=== PATIENT | female | born 1935 | race Caucasian/White ===

== ENCOUNTER → 2016-06-14 | Outpatient (CLI) | payer BC ==
[~2016-06-14] MED LIST: ALEN70TA2 PO; ASCO10003 PO; ASPI325T45 PO; CALC200T PO; CHOL20007 PO; LEVO50TA6 PO; MULTCAP33 PO; MULTCHW PO; OMEP20TA14 PO; SIMV20TA5 PO; VITA400C3 PO; [UNRECOGNIZED DRUG - OTHER] PO
[2016-06-14 10:27] LABS: BLOOD UREA NITROGEN 8 mg/dl (7-18); BUN/CREATININE RATIO 11.1 (10-20); CALCIUM 9.3 mg/dl (8.5-10.1); CARBON DIOXIDE 27 mmol/L (21-32); CHLORIDE 109 mmol/L (98-107); CREATININE 0.75 mg/dl (0.60-1.20); GLUCOSE 91 mg/dl (70-99); POTASSIUM 3.8 mmol/L (3.5-5.1); SODIUM 145 mmol/L (136-145)
== END | disposition home or self-care (01) ==
LOC: C.LAB1850 09:12
PROVIDERS: ATTEND Internal Medicine Pulmonary Disease
DX: E03.9 Hypothyroidism, unspecified (principal)

== ENCOUNTER 2019-04-27 17:35 | Inpatient (IN) ==
[2019-04-27] MEDS ORDERED: SODIUM CHLORIDE 0.9% 1000ML 1,000 ML IV ONE ×2 (17:45)
[2019-04-27] MEDS ORDERED: fentaNYL citrate 100 MCG/2 ML VIAL IV STA (18:33)
--- NOTE | 2019-04-27 18:55 | XRay Report ---
XR chest 1V portable HISTORY: 83 years-old Female Sepsis acute sepsis COMPARISON: Chest radiograph 06/06/2018 TECHNIQUE: Portable AP view of the chest FINDINGS: Cardiac silhouette is enlarged, unchanged. Persistent mediastinal widening. Mild right hemidiaphragma tic elevation. Mild chronic interstitial coarsening of the lung bases. No pneumothorax, pleural effus ion or overt pulmonary edema. Minimal pleural parenchymal scarring of the left upper lobe within the area of remote consolidation with 8 mm nodular opacity seen within this area. Degenerative changes of the shoulders and spine. IMPRESSION: 1. Cardiomegaly without overt pulmonary edema. 2. No evidence of pneumonia. 3. Ill-defined opacities of the left upper lobe within the area of previously documented pneumonia correia ggests postinflammatory scarring with ill-defined 8 mm nodular opacity seen within this distribution which may also reflect scar versus pulmonary nodule. ACT 112: Negative or not required by law. The above report was generated using voice recognition software. It may contain grammatical, syntax o r spelling errors. Electronically signed by: Bernardo Nova M.D. 04/27/2019 6:54 PM
[2019-04-27] MEDS ORDERED: DiphenhydrAMINE HCL 50 MG/ML VIAL IV STA (19:30)
[2019-04-27] MEDS ORDERED: LORazepam 2 MG/4 ML VIAL ONE (19:30)
[2019-04-27] MEDS ORDERED: LORazepam 0.5 MG/1 ML VIAL IV STA (19:30)
[2019-04-27 21:31] LABS: Appearance Urine Turbid (Clear); Bacteria Urine Automated 2+ (Negative); Blood Urine 3+ (Negative); Color Urine Orange; Glucose Urine UA Negative (Negative); Ketones Urine Negative (Negative); Leukocyte Esterase Urine 2+ (Negative); Nitrite Urine Positive (Negative); Protein Urine 1+ (Negative); Specific Gravity Urine 1.015 (1.000-1.030); Urobilinogen Urine Negative (Negative); WBC Urine Automated >30 /hpf (0-5)
[2019-04-27 21:48] LABS: Bilirubin Urine Negative (Negative); Ictotest Urine Negative (Negative)
[2019-04-27 21:50] LABS: RBC Urine Automated >30 /hpf (0-4)
[2019-04-27] MEDS ORDERED: cefTRIAXone SODIUM 2,000 MG/70 ML BAG IV STA (21:52)
[2019-04-27 22:06] LABS: Hematocrit (blood only) 39.4 % (37-47); Hemoglobin 13.1 g/dL (12.0-16.0); Mean Corpuscular Hemoglobin 31.1 pg (25-34); Mean Corpuscular Hgb Conc 33.2 g/dL (32-36); Mean Corpuscular Volume 93.6 fL (80-100); Platelet Count 104 K/uL (130-400); RDW Coefficient of Variation 15.2 % (11.5-14.5); RDW Standard Deviation 52.3 fL (36.4-46.3); Red Blood Count 4.21 M/uL (4.2-5.4); White Blood Count 23.38 K/uL (4.8-10.8)
[2019-04-27 22:14] LABS: INR 1.4 (0.9-1.1); Prothrombin Time 14.2 Seconds (9.0-12.0)
[2019-04-27 22:17] LABS: Alanine Aminotransferase 37 U/L (12-78); Albumin Level 2.7 gm/dl (3.4-5.0); Alkaline Phosphatase 105 U/L (45-117); Aspartate Aminotransferase 112 U/L (15-37); BUN Creatinine Ratio 16.7 (10-20); Bilirubin Direct 0.3 mg/dl (0-0.2); Bilirubin,Total 1.2 mg/dl (0.2-1); Blood Urea Nitrogen 37 mg/dl (7-18); Calcium 7.9 mg/dl (8.5-10.1); Carbon Dioxide 23 mmol/L (21-32); Chloride 114 mmol/L (98-107); Est GFR (African American) 23.4; Est GFR (Non-African American) 20.2; Glucose 76 mg/dl (70-99); Lipase 50 U/L (73-393); Magnesium 1.8 mg/dl (1.8-2.4); Sodium 145 mmol/L (136-145); Total Protein 5.6 gm/dl (6.4-8.2); Troponin I 0.117 ng/ml (0-0.045)
[2019-04-27] MEDS ORDERED: VANCOMYCIN CONSULT ACTIVE PRN (22:19)
[2019-04-27] MEDS ORDERED: VANCOMYCIN HCL 1,500 MG in SODIUM CHLORIDE 0.9% 500 ML IV ONE (22:19)
[2019-04-27 22:22] LABS: Potassium 4.5 mmol/L (3.5-5.1)
[2019-04-27 22:28] LABS: Basophils # (auto) 0.04 K/uL (0-0.2); Basophils % (auto) 0.2 %; Echinocytes 1+; Immature Granulocytes # (auto) 2.24 K/uL (0.00-0.02); Immature Granulocytes % (auto) 9.6 %; Lymphocytes # (auto) 0.77 K/uL (1.2-3.4); Lymphocytes % (auto) 3.3 %; Monocytes # (auto) 1.19 K/uL (0.11-0.59); Monocytes % (auto) 5.1 %; Neutrophils # (auto) 19.14 K/uL (1.4-6.5); Neutrophils % (auto) 81.8 %; Ovalocytes 1+
--- NOTE | 2019-04-27 23:14 | History & Physical Report ---
Date of Service April 27, 2019 Assessment & Plan (1) Urinary tract infection: Nelsy is an 83yo F with severe dementia who presents from [facility] for lethargy and who is admitted for urosepsis Urosepsis - Hypotensive, tachycardic on admit. Lactate 3.0. - UA infected appearing - Given empiric rocephin/vanco in ED - Narrow to rocephin 1g daily, d/c vanc for concern of HUNG - UC pending - CBC daily Blood pressure improved following 2 L normal saline bolus Continue NSS 110 cc/h Hypothyroid Continue Synthroid 88 mcg daily Defer TSH in the setting of acute illness Anxiety - Continue sertraline 100mg PO HS - Continue quetiapine 25mg daily History of bullous pemphigoid Continue [employer] prednisone - Continue azathioprine 50mg daily HUNG 2/2 sepsis Creatinine 2.19 from baseline less than 1 IV fluid maintenance as above Avoid nephrotoxins Transaminitis AST and total bilirubin mildly elevated Likely mild shock liver in the setting of sepsis - CMP qAM Troponin elevation Troponin 0.117 Likely demand ischemia in the setting of sepsis Trend troponin x3 - No chest pain at time of visit DVT prophylaxis: Heparin 5000 every 12 CODE STATUS: DNR/DNI. Discussed patient's CODE STATUS with her son Alexis at approximately 2300 hrs. He confirms that she has a living will, and that in the event of cardiac arrest would not want chest compressions. (2) Dementia: (3) Headache: (4) Dyspnea: (5) Dehydration: History of Present Illness Chief Complaint: UTI Primary Care Provider: [facility] Nelsy is an 83-year-old female with a past medical history of dementia, hypothyroid, Bullous pemphigoid,anxiety, and shingles who presents from [facility] after she had been lethargic for 1 day and there were concerns for altered mental status when she pulled out an IV. Per [facility] EMS sign out pt had also had intermittent vomiting x1-2 days. She has severe dementia, and history at the bedside is limited by cognitive status. Briefly discussed her care with her son by phone, reports that she lives at [facility] and they were concerned for lethargy and altered mental status. He confirms that she is DNR/DNI. No other history elicited. By chart review she is also followed by for medicine for bullous pemphigoid and is chronically on low-dose prednisone with intermittent doxycycline. Medical history: Reviewed as above Surgical history, reviewed in EMR, no documented surgical history Family history: Unable to obtain due to mental status Social history: No history of tobacco use, alcohol use, or substance use. Lives at [facility]. Allergies Allergy/AdvReac Type Severity Reaction Status Date / Time adhesive Allergy Unknown . Verified 04/27/19 20:00 Sulfa (Sulfonamide Allergy Unknown . Verified 04/27/19 20:00 Antibiotics) Home Medications Home Medications Medication Instructions Recorded Confirmed Type 2 Shayne/Cc Supp 60 ml PO QID 04/27/19 04/27/19 History acetaminophen [Tylenol] 650 mg PO QID PRN 04/27/19 04/27/19 History aspirin [Aspir-81] 81 mg PO DAILY 04/27/19 04/27/19 History azathioprine 50 mg PO DAILY 04/27/19 04/27/19 History calcium carbonate-vitamin D3 1 tab PO DAILY 04/27/19 04/27/19 History [Calcium 500 + D] levothyroxine 88 mcg PO DAILY 04/27/19 04/27/19 History melatonin 3 mg PO HS 04/27/19 04/27/19 History prednisone 5 mg PO DAILY 04/27/19 04/27/19 History promethazine 25 mg PO Q6 PRN 04/27/19 04/27/19 History quetiapine [Seroquel] 25 mg PO DAILY 04/27/19 04/27/19 History sertraline [Zoloft] 100 mg PO HS 04/27/19 04/27/19 History vit C,T-Bd-cwjeh-lutein-zeaxan 1 tab PO AMHS 04/27/19 04/27/19 History [PreserVision AREDS-2] Past Med/Surg History Medical History Candidal intertrigo Dementia DVT prophylaxis Hypothyroid (Chronic) Shingles (Resolved) Surgical History No pertinent past surgical history Social History Preferred Language: Stateless Communication Ability: Impaired Communication Ability Comment: pt has severe dementia; unable to answer questions Log Snaker Required: No Beliefs That Will Affect Care: None marital status: / Current Living Situation: Halfway Current Living Situation Comment: Living with daughter Other Information That Helps Us Care for You: No (unable to assess) Feels Safe at Home: Declines to Answer Smoking Status: Unknown if ever smoked Hx Alcohol Use: No Hx Substance Use: No Review of Systems Review of Systems: Unobtainable due to cognitive status Physical Exam Physical Exam: General: Lying in bed sleeping, arouses transiently to voice, NAD. Does not follow commands, does not answer questions appropriately. HEENT: Atraumatic, normocephalic. Pulm: CTAB A&P. -wheezes, -rales, -rhonchi. Symmetrical chest rise. No increased work of breathing. No respiratory distress. Cardiac: Tachycardic, -mrg. Radial pulses intact and symmetrical. Abdominal: Nontender, nondistended, soft. BS present. Extremities: Intact, no edema appreciated Unable to assess neuromuscular exam due to cognitive status. Results & Data Vital Signs (Past 12 Hours) Vital Signs Temp Pulse Resp BP Pulse Ox 04/27/19 23:00 101 H 20 94 04/27/19 20:35 106 H 24 119/65 04/27/19 20:30 106 H 24 99/49 L 04/27/19 19:50 100 H 19 04/27/19 19:40 100 H 21 04/27/19 19:30 102 H 29 H 04/27/19 19:20 112 H 28 H 04/27/19 19:10 103 H 20 04/27/19 19:01 100 H 16 04/27/19 18:50 98 H 21 83/49 L 93 04/27/19 17:36 36.9 C 107 H 24 75/43 L 93 Supervising Physician Co-Signing Physician Notes Attending addendum: I have physically seen this patient, have supervised the medical residents activities, and agree with the H&P unless as otherwise noted. Assessment and Plan: Sepsis due to urinary tract infection- Admit to monitored bed. Follow urine culture and sensitivity. Ceftriaxone 1 g IV daily. Discontinue vancomycin be begun in ED due to significant HUNG already present. Continue normal saline rehydration per septic protocol. Acute kidney injury- Creatinine 2.19 upon admission, with range 0.75-0.86 Repeat laboratories in a.m. after continued hydration overnight. Bullous pemphigoid history- For now continue both prednisone azathiprine. Monitor for need for stress dose steroids. Remainder of orders and notations as noted. Resident Activity Tracking Resident Involvement: Resident Care Provided Care Provided: Adult [facility] Medicine
[2019-04-28] MEDS ORDERED: POLYETHYLENE (MIRALAX) 17 GM PACK PO PRN (01:34)
[2019-04-28] MEDS ORDERED: PROMETHAZINE HCL 25 MG TAB PO PRN (01:34)
[2019-04-28] MEDS ORDERED: ACETAMINOPHEN 325 MG TAB PO PRN (01:34)
--- NOTE | 2019-04-28 02:29 | Emergency Department Note ---
Entered by Keyanna Mercado acting as a scribe for Louie Estrada MD ED Provider Note Name: NICOLETTE MCCLENDON Age: 83 Arrives Via: Ambulance Informant: Patient, EMS CC: Illness HPI: 83F arrives for evaluation of illness. EMS reports that the patient has a history of dementia and was sent here by [facility] after vomiting for the last few days and for abnormal vitals. EMS states she is tachycardic and hypoxic. EMS also reports that she was hypertensive in route today with a sy stolic pressure of 180 mmHg. However, they admit this may not be accurate as 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 The patient states that she currently does not have pain. HPI is limited due to the patient's dementia. ROS: See above HPI for pertinent positives & negatives. A total of 10 systems reviewed and were otherwise negative. ROS is limited due to the patient's dementia. Past Medical History:Dementia, hypothyroidism, dehydration, dyspnea, fall, head injury, shingles, see additional history below. Past Surgical History:No pertinent past surgical history. Family History:No pertinent family history. Social History:Never smoker, no drug or ETOH use. Home Medications:2 Shayne/Cc Supp, acetaminophen, aspirin, azathioprine, calcium carbonate vitamin D3, levothyroxine, melatonin, prednisone, promethazine, quetiapine, sertraline, vitamin C Allergies:adhesive, sulfa Vitals: * BP: 75/43 * Pulse: 107 * Resp: 24 * Temp: 36.9 C * O2 Sat: 93 * Delivery: Room Air Physical Exam: GENERAL: Patient is elderly and dehydrated appearing, demented, and in no acute distress. EYES: No scleral icterus, unremarkable pupils. ENT: Mucous membranes are dry, no nasal congestion. NECK: No masses appreciated, nomeningismus, trachea is midline. RESPIRATORY: No dyspnea. Crackles throughout left lobes. Mildly dyspneic and tachypneic. No wheeze, no rhonchi. CARDIOVASCULAR: Tachycardic rate and normal rhythm.No murmurs, rubs, gallops appreciated. GASTROINTESTINAL: Abdomen soft, non-tender, no peritonitis.Bowel sounds positive.No masses appreciated. BACK: No midline tenderness, no CVA tenderness EXTREMITIES: Normal motion all extremities, no cyanosis, no edema. NEUROLOGIC: Demented, no acute motor or sensory deficits, no focal weakness, cranial nerves grossly intact. SKIN: No rash, no jaundice, no diaphoresis. ED Course: Prior Medical Record, Triage/Nursing Notes, Medications, Allergies reviewed by Me Vital Signs: reviewed and remarkable for Hypotension, Tachycardia Labs:Reviewed and remarkable for leukocytosis, Lactic acidosis Interventions: saline lock, nss bolus 2L IV, Vanco 1.5gm IV, Rocephin 2gm IV, Benadryl 25mg IV, Ativan 0.5mg IV, Fentanyl 25mcg IV Imaging:X ray results are stated below per my interpretation: Chest: 1 view: No infiltrate, no effusion, normal cardiac border. EKG:Per My Interpretation: Indication Hypotension: ST103 bpm, qtc 474. No Ectopy. No Ischemia. Compared to EKG 06/06/18, no significant changes. Reassessments/Times: * 1743: Past medical records reviewed. The patient was evaluated in room A03. A complete history and physical exam was performed. * 1838: I checked on the patient and she is complaining of pain. Her family is at bedside and the patient appears calmer with them there but she continues to try and rip out her IV. * 193: The patient is fighting against workup. Family is asking for further sedation. The patient is getting more and more agitated. * 2125: I re-checked the patient. She is sleeping. I am still waiting on urine and labs. Blood pressure:n/a Disposition:hospitalization Differentials:Etiologies such as metabolic, infection, hypo/hyperglycemia, electrolyte abnormalities, cardiac sources, intracerebral event, toxicologic, neurologic, as well as others were entertained. Medical Decision Makin yr old demented female with extensive other medical issues arrives via ems for evaluation of hypotension. Labs this morning concerning for sepsis. She was evaluated immediately on arrival and made clear to nursing concern for sepsis. IV obstained and IV fluids ordered. Able to improve BP in short order with IV fluids. She became quite combative once her BP came up and family at bedside. Had to try some ativan/benadryl to help calm her down. On top of this significant difficult IV stick. After prolonged time labs obtained along with straight cath. Broad spectrum abx initiated. Fortunately BPs remained stable post fluid resus and with this no pressors indicated. Will need to come in for further management. Impression: Septic Shock Acute UTI Acute Hypotension Critical Care Time: I have personally spent greater than 35 minutes of critical care time in the direct management of this patient. Hypotensive septic shock requiring fluid resus. This was a life/limb threatening event. This includes time spent evaluating patient, direct bedside care, chart review, placing orders, interpretation of diagnostic studies, discussion with consultants, and family members, as well as other required patient management activities. This 35 m inutes is in excess of all separately billable procedures. The scribe's documentation has been prepared under my direction and personally reviewed by me in its entirety. I confirm that the note above accurately reflects all work, treatment, procedures, and medical decision making performed by me. Louie Estrada MD Impression & Plan Septic shock, Acute UTI, Acute hypotension Past Med/Surg History Medical History Candidal intertrigo Dementia DVT prophylaxis Hypothyroid (Chronic) Shingles (Resolved) Surgical History No pertinent past surgical history Social History Preferred Language: Guyanese Communication Ability: Effective Psychological Operations Required: No Beliefs That Will Affect Care: None marital status: / Current Living Situation: Family Current Living Situation Comment: Living with daughter Feels Safe at Home: Declines to Answer Smoking Status: Never smoker Second Hand Exposure: No ; Hx Alcohol Use: No Hx Substance Use: No Results & Data Vital Signs Vital Signs - 24 hr 04/27/19 17:36 04/27/19 18:50 04/27/19 19:01 Temperature 36.9 C Temperature Source Oral Pulse Rate 107 H 98 H 100 H Pulse Rate from SpO2 Sensor 100 H Respiratory Rate 24 21 16 Respiratory Effort / Characteristics Non-Labored Spontaneous Respiratory Depth Normal Respiratory Pattern Agonal Blood Pressure 75/43 L 83/49 L Blood Pressure Mean 53 60 Blood Pressure Position Lying Pulse Oximetry 93 93 Oxygen Delivery Method Room Air Sepsis Recent Fever Within 48 Hours No Sepsis New/Unexplained Change in Mental Status No Sepsis Action Taken by Nursing No Action Required 04/27/19 19:10 04/27/19 19:20 04/27/19 19:30 Temperature Temperature Source Pulse Rate 103 H 112 H 102 H Pulse Rate from SpO2 Sensor Respiratory Rate 20 28 H 29 H Respiratory Effort / Characteristics Respiratory Depth Respiratory Pattern Blood Pressure Blood Pressure Mean Blood Pressure Position Pulse Oximetry Oxygen Delivery Method Sepsis Recent Fever Within 48 Hours Sepsis New/Unexplained Change in Mental Status Sepsis Action Taken by Nursing 04/27/19 19:40 04/27/19 19:50 04/27/19 20:30 Temperature Temperature Source Pulse Rate 100 H 100 H 106 H Pulse Rate from SpO2 Sensor Respiratory Rate 21 19 24 Respiratory Effort / Characteristics Respiratory Depth Respiratory Pattern Blood Pressure 99/49 L Blood Pressure Mean 64 Blood Pressure Position Pulse Oximetry Oxygen Delivery Method Sepsis Recent Fever Within 48 Hours Sepsis New/Unexplained Change in Mental Status Sepsis Action Taken by Nursing 04/27/19 20:35 04/27/19 23:00 Temperature Temperature Source Pulse Rate 106 H 101 H Pulse Rate from SpO2 Sensor 105 H Respiratory Rate 24 20 Respiratory Effort / Characteristics Respiratory Depth Respiratory Pattern Blood Pressure 119/65 Blood Pressure Mean 69 Blood Pressure Position Pulse Oximetry 94 Oxygen Delivery Method Room Air Sepsis Recent Fever Within 48 Hours Sepsis New/Unexplained Change in Mental Status Sepsis Action Taken by Nursing Laboratory Data Result diagrams: 04/27/19 21:30 04/27/19 21:30 Lab Results 04/27/19 04/27/19 04/27/19 Range/Units 20:30 21:30 21:30 WBC 23.38 H (4.8-10.8) K/uL RBC 4.21 (4.2-5.4) M/uL Hgb 13.1 (12.0-16.0) g/dL Hct 39.4 (37-47) % MCV 93.6 (80-100) fL MCH 31.1 (25-34) pg MCHC 33.2 (32-36) g/dL RDW Std Deviation 52.3 H (36.4-46.3) fL RDW Coeff of Roger 15.2 H (11.5-14.5) % Plt Count 104 L (130-400) K/uL MPV 12.0 H (7.4-10.4) fL Immature Gran % (Auto) 9.6 % Neut % (Auto) 81.8 % Lymph % (Auto) 3.3 % Cook % (Auto) 5.1 % Eos % (Auto) 0.0 % Baso % (Auto) 0.2 % Immature Gran # (Auto) 2.24 H (0.00-0.02) K/uL Neut # (Auto) 19.14 H (1.4-6.5) K/uL Lymph # (Auto) 0.77 L (1.2-3.4) K/uL Cook # (Auto) 1.19 H (0.11-0.59) K/uL Eos # (Auto) 0.00 (0-0.5) K/uL Baso # (Auto) 0.04 (0-0.2) K/uL Ovalocytes 1+ Echinocytes 1+ PT 14.2 H (9.0-12.0) Seconds INR 1.4 H (0.9-1.1) Sodium (136-145) mmol/L Potassium (3.5-5.1) mmol/L Chloride (98-107) mmol/L Carbon Dioxide (21-32) mmol/L Anion Gap (3-11) BUN (7-18) mg/dl Creatinine (0.6-1.2) mg/dl Est Cr Clr Drug Dosing Est GFR ( Amer) Est GFR (Non-Af Amer) BUN/Creatinine Ratio (10-20) Glucose (70-99) mg/dl Lactate (0.4-2.0) mmol/L Calcium (8.5-10.1) mg/dl Magnesium (1.8-2.4) mg/dl Total Bilirubin (0.2-1) mg/dl Direct Bilirubin (0-0.2) mg/dl AST (15-37) U/L ALT (12-78) U/L Alkaline Phosphatase (45-117) U/L Troponin I (0-0.045) ng/ml Total Protein (6.4-8.2) gm/dl Albumin (3.4-5.0) gm/dl Lipase (73-393) U/L Urine Color [place] Urine Appearance Turbid A (Clear) Urine pH 5.0 (4.5-7.5) Ur Specific [place] 1.015 (1.000-1.030) Urine Protein 1+ H (Negative) Urine Glucose (UA) Negative (Negative) Urine Ketones Negative (Negative) Urine Blood 3+ H (Negative) Urine Nitrite Positive A (Negative) Urine Bilirubin Negative (Negative) Urine Urobilinogen Negative (Negative) Ur Leukocyte Esterase 2+ H (Negative) Urine WBC (Auto) >30 H (0-5) /hpf Urine RBC (Auto) >30 H (0-4) /hpf U Hyaline Cast (Auto) 5-10 H (0-5) /lpf U Epithel Cells (Auto) 10-20 H (0-5) /lpf Urine Bacteria (Auto) 2+ H (Negative) Granular Casts 1-5 H (0) /lpf Urine Yeast Not Reportable 04/27/19 04/27/19 Range/Units 21:30 21:30 WBC (4.8-10.8) K/uL RBC (4.2-5.4) M/uL Hgb (12.0-16.0) g/dL Hct (37-47) % MCV (80-100) fL MCH (25-34) pg MCHC (32-36) g/dL RDW Std Deviation (36.4-46.3) fL RDW Coeff of Roger (11.5-14.5) % Plt Count (130-400) K/uL MPV (7.4-10.4) fL Immature Gran % (Auto) % Neut % (Auto) % Lymph % (Auto) % Cook % (Auto) % Eos % (Auto) % Baso % (Auto) % Immature Gran # (Auto) (0.00-0.02) K/uL Neut # (Auto) (1.4-6.5) K/uL Lymph # (Auto) (1.2-3.4) K/uL Cook # (Auto) (0.11-0.59) K/uL Eos # (Auto) (0-0.5) K/uL Baso # (Auto) (0-0.2) K/uL Ovalocytes Echinocytes PT (9.0-12.0) Seconds INR (0.9-1.1) Sodium 145 (136-145) mmol/L Potassium 4.5 D (3.5-5.1) mmol/L Chloride 114 H (98-107) mmol/L Carbon Dioxide 23 (21-32) mmol/L Anion Gap 8.0 (3-11) BUN 37 H (7-18) mg/dl Creatinine 2.19 H (0.6-1.2) mg/dl Est Cr Clr Drug Dosing Not Reportable Est GFR ( Amer) 23.4 Est GFR (Non-Af Amer) 20.2 BUN/Creatinine Ratio 16.7 (10-20) Glucose 76 (70-99) mg/dl Lactate 3.0 H* (0.4-2.0) mmol/L Calcium 7.9 L (8.5-10.1) mg/dl Magnesium 1.8 (1.8-2.4) mg/dl Total Bilirubin 1.2 H (0.2-1) mg/dl Direct Bilirubin 0.3 H (0-0.2) mg/dl AST 112 H (15-37) U/L ALT 37 (12-78) U/L Alkaline Phosphatase 105 (45-117) U/L Troponin I 0.117 H* (0-0.045) ng/ml Total Protein 5.6 L (6.4-8.2) gm/dl Albumin 2.7 L (3.4-5.0) gm/dl Lipase 50 L (73-393) U/L Urine Color Urine Appearance (Clear) Urine pH (4.5-7.5) Ur Specific [place] (1.000-1.030) Urine Protein (Negative) Urine Glucose (UA) (Negative) Urine Ketones (Negative) Urine Blood (Negative) Urine Nitrite (Negative) Urine Bilirubin (Negative) Urine Urobilinogen (Negative) Ur Leukocyte Esterase (Negative) Urine WBC (Auto) (0-5) /hpf Urine RBC (Auto) (0-4) /hpf U Hyaline Cast (Auto) (0-5) /lpf U Epithel Cells (Auto) (0-5) /lpf Urine Bacteria (Auto) (Negative) Granular Casts (0) /lpf Urine Yeast Administered Medications Discontinued Medications Diphenhydramine HCl (Benadryl) 25 mg IV NOW STA Stop: 04/27/19 19:31 Last Admin: 04/27/19 23:04 Dose: Not Given Documented by: [id number] Fentanyl Citrate (Fentanyl Citrate) 25 mcg IV NOW STA Stop: 04/27/19 18:34 Last Admin: 04/27/19 18:46 Dose: 25 mcg Documented by: [id number] Sodium Chloride (Nss 1000ml) 1,000 mls @ 999 mls/hr IV .Q1H1M ONE Stop: 04/27/19 18:45 Last Infusion: 04/27/19 19:14 Dose: 0 mls/hr Documented by: [id number] Admin: 04/27/19 18:28 Dose: 999 mls/hr Documented by: [id number] Sodium Chloride (Nss 1000ml) 1,000 mls @ 999 mls/hr IV .Q1H1M ONE Stop: 04/27/19 18:45 Last Infusion: 04/27/19 19:14 Dose: 0 mls/hr Documented by: [id number] Admin: 04/27/19 18:28 Dose: 999 mls/hr Documented by: [id number] Lorazepam (Ativan) 0.5 mg in 1 mls @ 1 mls/min IV NOW STA Stop: 04/27/19 19:31 Last Admin: 04/27/19 19:42 Dose: 1 mls/min Documented by: [id number] Ceftriaxone Sodium (Rocephin) 2,000 mg in 70 mls @ 140 mls/hr IV NOW STA Stop: 04/27/19 22:21 Last Infusion: 04/27/19 22:36 Dose: 0 mls/hr Documented by: [id number] Admin: 04/27/19 22:06 Dose: 140 mls/hr Documented by: [id number] Vancomycin HCl 1,500 mg/ (Sodium Chloride) 530 mls @ 200 mls/hr IV NOW ONE Stop: 04/28/19 00:57 Last Infusion: 04/28/19 02:11 Dose: 0 mls/hr Documented by: [id number] Infusion: 04/27/19 23:29 Dose: 0 mls/hr Documented by: [id number] Admin: 04/27/19 23:07 Dose: 200 mls/hr Documented by: [id number] Lorazepam (Ativan) Confirm Administered Dose 2 mg .ROUTE .STK-MED ONE Stop: 04/27/19 19:31 Last Admin: 04/27/19 19:42 Dose: Not Given Documented by: [id number] Discharge Plan Visit Data *Final* Discharge Date/Time: 04/28/19 01:12 Chief Complaint: Illness ED Provider: Louie Esrtada Discharge Problem: Septic shock, Acute UTI, Acute hypotension Patient Disposition: Admitted As Inpatient Discharge Instructions Interventions: ED Discharge Assessment Last Done: 04/28/19 01:12 The scribe's documentation has been prepared under my direction and personally reviewed by me in its entirety. I confirm that the note above accurately reflects all work, treatment, procedures, and medical decision making performed by me.
[2019-04-28] MEDS: SODIUM CHLORIDE 0.9% 1000ML 1,000 ML IV SCH ×3 (02:52→22:29)
[2019-04-28] MEDS: LEVOTHYROXINE SODIUM 88 MCG TABLET PO SCH (06:16)
[2019-04-28 06:43] LABS: Hematocrit (blood only) 39.1 % (37-47); Hemoglobin 12.9 g/dL (12.0-16.0); Mean Corpuscular Hemoglobin 30.4 pg (25-34); Mean Corpuscular Volume 92.2 fL (80-100); Mean Platelet Volume 12.1 fL (7.4-10.4); Platelet Count 91 K/uL (130-400); RDW Coefficient of Variation 15.3 % (11.5-14.5); RDW Standard Deviation 51.7 fL (36.4-46.3); Red Blood Count 4.24 M/uL (4.2-5.4); White Blood Count 17.75 K/uL (4.8-10.8)
[2019-04-28 06:45] LABS: ANC (manual) 15.32 K/uL (1.4-6.5); Echinocytes 1+; Lymphocytes % (manual) 3.4 %; Metamyelocytes # (manual) 1.51 K/uL (0-0); Metamyelocytes % (manual) 8.5 %; Monocytes # (manual) 0.16 K/uL (0.11-0.59); Monocytes % (manual) 0.9 %; Myelocytes # (manual) 0.16 K/uL (0-0); Myelocytes % (manual) 0.9 %; Neutrophils # (manual) 15.32 K/uL (1.4-6.5); Neutrophils % (manual) 86.3 %; Ovalocytes 1+; Platelet Estimate Decreased (Normal); Toxic Vacuolation 1+
[2019-04-28] MEDS: CALCIUM 600MG + VIT D 400 IU TAB PO SCH (08:43)
[2019-04-28] MEDS: ASPIRIN 81 MG ECTAB PO SCH (08:43)
[2019-04-28] MEDS: QUETIAPINE FUMARATE 25 MG TABLET PO SCH (08:44)
[2019-04-28] MEDS: HEPARIN SOD 5,000 UNIT/0.5 ML VIAL SQ SCH ×2 (08:44→20:33)
[2019-04-28] MEDS ORDERED: predniSONE 5 MG TAB PO SCH (09:00)
[2019-04-28] MEDS ORDERED: PNEUMOCOCCAL Polysaccharide Vaccine 25mcg/0.5mL vial/Syr IM ONE (11:00)
[2019-04-28] MEDS ORDERED: INFLUENZA Vaccine HIGH DOSE 65+yrs 0.5 mL Syr IM ONE (11:00)
[2019-04-28] MEDS ORDERED: PIPERACILL/TAZOBAC CONSULT ACTIVE PRN (11:28)
[2019-04-28 11:57] LABS: Alanine Aminotransferase 39 U/L (12-78); Albumin Globulin Ratio 0.8 (0.9-2); Albumin Level 2.5 gm/dl (3.4-5.0); Alkaline Phosphatase 115 U/L (45-117); Aspartate Aminotransferase 103 U/L (15-37); BUN Creatinine Ratio 22.9 (10-20); Bilirubin,Total 0.9 mg/dl (0.2-1); Blood Urea Nitrogen 33 mg/dl (7-18); Calcium 7.8 mg/dl (8.5-10.1); Carbon Dioxide 23 mmol/L (21-32); Chloride 117 mmol/L (98-107); Est GFR (African American) 39.2; Est GFR (Non-African American) 33.8; Glucose 78 mg/dl (70-99); Potassium 3.7 mmol/L (3.5-5.1); Sodium 145 mmol/L (136-145); Total Protein 5.5 gm/dl (6.4-8.2); Troponin I 0.061 ng/ml (0-0.045)
[2019-04-28] MEDS ORDERED: PIPERACILLIN/TAZOBACTAM 4.5 GM in DEXTROSE 5% 100 ML IV ONE (12:30)
[2019-04-28] MEDS: PIPERACILLIN/TAZOBACTAM 3.375 GM in DEXTROSE 5% 100 ML IV SCH (20:10)
--- NOTE | 2019-04-28 20:13 | Hospitalist Progress Note ---
Date of Service April 28, 2019 Assessment & Plan (1) Urinary tract infection: Nelsy is an 83yo F with severe dementia who presents from [facility] for lethargy and who is admitted for urosepsis - UCx with gram neg bacilli - awaiting further identification - Broaden to Zosyn pending identification and will de-escalate pending response/cultures - Hypotension improved with fluid - low normal currently and will monitor -- Given chronic steroids could consider stress dose steroids however will monitor currently as steroid dosing could cause worsening confusion - Continue IVF and monitor (2) Bacteremia: - BCx with gram neg bacili - will broaden Abx to Zosyn and await organism identification - Treatment as above (3) Sepsis: - Related to UTI/Bacteremia - leukocytosis, hypotension, tachycardia, elevated lactic - Associated transaminitis - likely due to mild shock liver in setting of sepsis; Troponin trending down and likely due to demand ischemia from sepsis - Treatment as above Present on Admission?: No (4) Acute kidney injury: - Cr at 2.19 on admission - likely pre-renal - Cr beginning to trend down and will monitor; avoid nephrotoxins (5) Hypothyroidism: - Continue Synthroid 88 mcg daily (6) Bullous pemphigoid: - Hold Azathioprine due to acute infection; Continue Prednisone 5 mg daily - Pending BP monitoring may consider stress dose steroids (7) Dementia: - Seroquel 25 mg daily; Sertraline 100 mg HS Disposition: Resident of [facility]; await improvement from acute illness Subjective Patient is largely sleeping through the day. Occ screams out. BCx growing gram neg organism as well as urine. Blood pressure low normal and will monitor. Remains afebrile. ROS unobtainable due to cognitive status. Review of Systems Review of Systems: Unobtainable due to cognitive status Physical Exam Constitutional: + frail appearing; no acute distress ENMT: Mouth: + dry oral mucous membranes Neck: trachea midline Respiratory: normal respiratory effort Auscultation: + diminished lung sounds Cardiovascular: Rate/Rhythm: regular rate and regular rhythm Heart Sounds: + murmur Gastrointestinal (Abdomen): Inspection/Auscultation: normal bowel sounds Percussion/Palpation: abdomen soft; abdomen nontender Musculoskeletal: Head/Neck/Chest: normocephalic and head atraumatic Extremities: no cyanosis Psychiatric: Largely sleeping, wakes up slightly but quickly back to sleep Results & Data Vital Signs (Past 12 Hours) Vital Signs Temp Pulse Resp BP Pulse Ox 04/28/19 15:12 36.6 C 100 H 18 95/58 L 95 PG Care Time/CCT Total # of Minutes Spent Total Time Spent with Patient: Total time spent is greater than 50% in coordination of care (as documented) at patient's floor/unit and/or counseling patient:
[2019-04-28] MEDS: SERTRALINE HCL 100 MG TABLET PO SCH (20:26)
[2019-04-28] MEDS ORDERED: cefTRIAXone SODIUM 1,000 MG in DEXTROSE 5% 50 ML IV SCH (22:00)
--- NOTE | 2019-04-28 22:28 | Billing Data ---
Date of Service April 28, 2019 Coding Level of Care Code 31556 Initial Inpt Care Lvl 3
[2019-04-29] MEDS: PIPERACILLIN/TAZOBACTAM 3.375 GM in DEXTROSE 5% 100 ML IV SCH ×3 (02:02→18:24)
[2019-04-29] MEDS: LEVOTHYROXINE SODIUM 88 MCG TABLET PO SCH (05:56)
[2019-04-29 06:15] LABS: Hematocrit (blood only) 37.4 % (37-47); Hemoglobin 12.2 g/dL (12.0-16.0); Mean Corpuscular Hemoglobin 30.8 pg (25-34); Mean Corpuscular Hgb Conc 32.6 g/dL (32-36); Mean Corpuscular Volume 94.4 fL (80-100); RDW Coefficient of Variation 15.2 % (11.5-14.5); RDW Standard Deviation 52.7 fL (36.4-46.3); Red Blood Count 3.96 M/uL (4.2-5.4); White Blood Count 13.14 K/uL (4.8-10.8)
[2019-04-29 06:54] LABS: Albumin Level 2.3 gm/dl (3.4-5.0); BUN Creatinine Ratio 25.5 (10-20); Calcium 8.1 mg/dl (8.5-10.1); Creatinine Clr Calc Pharmacy 48.7 ml/min; Est GFR (African American) 67.6; Est GFR (Non-African American) 58.3; Mean Platelet Volume 11.9 fL (7.4-10.4); Platelet Count 71 K/uL (130-400); Potassium 3.3 mmol/L (3.5-5.1)
[2019-04-29 06:55] LABS: Basophils # (auto) 0.02 K/uL (0-0.2); Basophils % (auto) 0.2 %; Dohle Bodies 1+; Eosinophils # (auto) 0.02 K/uL (0-0.5); Eosinophils % (auto) 0.2 %; Immature Granulocytes # (auto) 0.04 K/uL (0.00-0.02); Immature Granulocytes % (auto) 0.3 %; Lymphocytes # (auto) 0.56 K/uL (1.2-3.4); Lymphocytes % (auto) 4.3 %; Monocytes # (auto) 0.16 K/uL (0.11-0.59); Monocytes % (auto) 1.2 %; Neutrophils # (auto) 12.34 K/uL (1.4-6.5); Neutrophils % (auto) 93.8 %
[2019-04-29] MEDS: SODIUM CHLORIDE 0.9% 1000ML 1,000 ML IV SCH (07:00)
[2019-04-29 07:01] LABS: Albumin Globulin Ratio 0.8 (0.9-2); Bilirubin,Total 1.1 mg/dl (0.2-1); Total Protein 5.3 gm/dl (6.4-8.2)
[2019-04-29] MEDS ORDERED: HYDROCORTISONE SOD 100 MG in SYRINGE 0 ML IV STA (07:47)
[2019-04-29] MEDS ORDERED: SODIUM CHLORIDE 0.9% 1000ML 500 ML IV ONE (08:00)
[2019-04-29] MEDS: NSS + 20MEQ KCL 20 MEQ/1,000 ML BAG IV SCH ×2 (08:20→18:22)
[2019-04-29] MEDS: ASPIRIN 81 MG ECTAB PO SCH (09:00)
[2019-04-29] MEDS: QUETIAPINE FUMARATE 25 MG TABLET PO SCH (09:00)
[2019-04-29] MEDS: CALCIUM 600MG + VIT D 400 IU TAB PO SCH (09:02)
[2019-04-29] MEDS: HEPARIN SOD 5,000 UNIT/0.5 ML VIAL SQ SCH ×2 (09:02→20:50)
[2019-04-29] MEDS: HYDROCORTISONE SOD 50 MG in SYRINGE 0 ML IV SCH ×2 (16:41→23:12)
--- NOTE | 2019-04-29 18:38 | Hospitalist Progress Note ---
Date of Service April 29, 2019 Assessment & Plan (1) Urinary tract infection: Nelsy is an 83yo F with severe dementia who presents from [facility] for lethargy and who is admitted for urosepsis - UCx with pansensitive e. coli; BCx with gram neg bacilli and likely will reveal the same but still pending - Continue Zosyn pending BCx identification and will de-escalate pending response/cultures - was febrile this AM but if remains afebrile through day likely de-escalate tomorrow - Hypotension improved with fluid - low normal currently and will monitor - Will stress dose steroids given febrile/tachycardia (sinus tach on EKG) and monitor - Continue IVF and monitor (2) Bacteremia: - BCx with gram neg bacili - continue Zosyn and await organism identification - Repeat BCx obtained on 04/29 - if sterile - would start "day 1" of therapy from this date - Treatment as above (3) Sepsis: - Related to UTI/Bacteremia - leukocytosis, hypotension, tachycardia, elevated lactic - Associated mild AST bump - likely due to mild shock liver in setting of sepsis; Troponin trending down and likely due to demand ischemia from sepsis -- WBC trending down; AST resolving - Treatment as above (4) Acute kidney injury: - Cr at 2.19 on admission - and improved with fluids and currently at 0.91 which appears around baseline - likely prerenal - Continue to monitor; avoid nephrotoxins (5) Hypothyroidism: - Continue Synthroid 88 mcg daily (6) Bullous pemphigoid: - Hold Azathioprine due to acute infection; Hold Prednisone 5 mg daily due to stress dosing (7) Dementia: - Seroquel 25 mg daily; Sertraline 100 mg HS Disposition: Resident of [facility]; await improvement from acute illness; Updated son at bedside today -- Repeat BCx obtained - D/C pending medical stability Subjective Patient noted to have a fever this AM and tachycardia. Patient is largely sleeping during my exam. With eyes closed only verbalized " leave me alone and shut up" when in the room and quickly falls back to sleep. EKG with sinus tach. Fluids utilized and stress dose steroids initiated. Updated son at bedside. States she normally is conversant with others at [facility] but states her dementia is very advanced and normally is a kind person. Labs are improving even in the setting of fever this AM. Review of Systems Review of Systems: Unobtainable due to cognitive status Physical Exam Constitutional: + frail appearing; no acute distress ENMT: Mouth: + dry oral mucous membranes Neck: trachea midline Respiratory: normal respiratory effort Auscultation: + diminished lung sounds Cardiovascular: Rate/Rhythm: regular rate and regular rhythm Heart Sounds: + murmur Gastrointestinal (Abdomen): Inspection/Auscultation: normal bowel sounds Percussion/Palpation: abdomen soft; abdomen nontender Musculoskeletal: Head/Neck/Chest: normocephalic and head atraumatic Extremities: no cyanosis Skin: no rashes, warm and dry Psychiatric: obtunded Results & Data Vital Signs (Past 12 Hours) Vital Signs Temp Pulse Pulse Pulse Resp BP Pulse Ox 04/29/19 15:20 36.3 C L 77 20 90/57 L 95 04/29/19 07:05 132 H 94 04/29/19 07:02 38.4 C H 178 H 22 110/75 PG Care Time/CCT Total # of Minutes Spent Total Time Spent with Patient: Total time spent is greater than 50% in coordination of care (as documented) at patient's floor/unit and/or counseling patient:
[2019-04-29] MEDS: SERTRALINE HCL 100 MG TABLET PO SCH (20:31)
[2019-04-30] MEDS: PIPERACILLIN/TAZOBACTAM 3.375 GM in DEXTROSE 5% 100 ML IV SCH ×2 (01:21→10:04)
[2019-04-30] MEDS: NSS + 20MEQ KCL 20 MEQ/1,000 ML BAG IV SCH ×2 (03:55→13:00)
[2019-04-30] MEDS: LEVOTHYROXINE SODIUM 88 MCG TABLET PO SCH (04:40)
[2019-04-30 06:41] LABS: Hematocrit (blood only) 41.3 % (37-47); Hemoglobin 13.4 g/dL (12.0-16.0); Mean Corpuscular Hemoglobin 30.3 pg (25-34); Mean Corpuscular Hgb Conc 32.4 g/dL (32-36); Mean Corpuscular Volume 93.4 fL (80-100); RDW Coefficient of Variation 15.4 % (11.5-14.5); RDW Standard Deviation 53.1 fL (36.4-46.3); Red Blood Count 4.42 M/uL (4.2-5.4)
[2019-04-30 06:48] LABS: Mean Platelet Volume 12.6 fL (7.4-10.4); Platelet Count 61 K/uL (130-400)
[2019-04-30 07:52] LABS: Echinocytes 1+; Immature Granulocytes # (auto) 0.04 K/uL (0.00-0.02); Immature Granulocytes % (auto) 0.6 %; Lymphocytes # (auto) 0.36 K/uL (1.2-3.4); Lymphocytes % (auto) 5.3 %; Monocytes # (auto) 0.09 K/uL (0.11-0.59); Monocytes % (auto) 1.3 %; Neutrophils # (auto) 6.31 K/uL (1.4-6.5); Neutrophils % (auto) 92.8 %; Toxic Granulation 1+
[2019-04-30] MEDS: QUETIAPINE FUMARATE 25 MG TABLET PO SCH (08:37)
[2019-04-30] MEDS: ASPIRIN 81 MG ECTAB PO SCH (08:37)
[2019-04-30] MEDS: CALCIUM 600MG + VIT D 400 IU TAB PO SCH (08:37)
[2019-04-30] MEDS: HEPARIN SOD 5,000 UNIT/0.5 ML VIAL SQ SCH (08:38)
[2019-04-30] MEDS: HYDROCORTISONE SOD 50 MG in SYRINGE 0 ML IV SCH ×2 (08:45→16:30)
[2019-04-30 14:17] LABS: BUN Creatinine Ratio 19.7 (10-20); Calcium 8.5 mg/dl (8.5-10.1); Creatinine Clr Calc Pharmacy 41.8 ml/min; Est GFR (African American) 56.2; Est GFR (Non-African American) 48.5; Potassium 3.5 mmol/L (3.5-5.1)
--- NOTE | 2019-04-30 14:50 | XRay Report ---
SEEN ONLY PELVIS; 2 VIEWS LEFT HIP CLINICAL HISTORY: Left hip pain. FINDINGS: An AP view of the pelvis with AP and frog-leg views of the left hip are obtained. No prior studies are available for comparison at the time of dictation. The skeletal structures are osteopenic . No fracture is seen involving the hips or bony pelvis. Mild degenerative joint space narrowing is p resent in the hips. Degenerative sclerosis is noted in the sacroiliac joints. Lumbosacral spondylosis is partially visualized. Enthesophytes arise from the anterior superior iliac spines. The overlying soft tissues are normal in appearance. Phleboliths are observed in the pelvis. IMPRESSION: No acute bony abnormality is identified. Electronically signed by: Moustapha Pérez M.D. 04/30/2019 2:49 PM
--- NOTE | 2019-04-30 17:45 | XRay Report ---
XR chest 1V portable HISTORY: 83 years-old Female infiltrate right upper lobe acute shortness of breath COMPARISON: Chest radiograph 04/27/2019, CTA chest 06/06/2018 TECHNIQUE: Semierect portable AP view of the chest FINDINGS: Cardiac silhouette is enlarged, unchanged. Pulmonary vascular congestion without overt pulmonary marge a. Mild blunting of the costophrenic angles. No pneumothorax or new focal airspace consolidation. Min imal bibasilar densities suggest atelectasis Previously questioned 8 mm nodular opacity of the left u pper lung is not identified on today's study. Degenerative changes of the shoulders and spine. IMPRESSION: 1. Cardiomegaly with pulmonary vascular congestion. 2. Probable trace pleural effusions with bibasilar atelectasis. 3. Previously described ill-defined opacities of the left upper lung are not identified on today's st udy. No definite evidence of pneumonia. ACT 112: Negative or not required by law. The above report was generated using voice recognition software. It may contain grammatical, syntax o r spelling errors. Electronically signed by: Bernardo Nova M.D. 04/30/2019 5:44 PM
--- NOTE | 2019-05-02 22:36 | Discharge Summary ---
Date of Service April 30, 2019 Admission HPI Per Admitting Provider Nelsy is an 83-year-old female with a past medical history of dementia, hypothyroid, Bullous pemphigoid,anxiety, and shingles [facility] she had been lethargic for 1 day and there were concerns for altered mental status when she pulled out an IV. Per [facility] sign out pt had also had intermittent vomiting x1-2 days. She has severe dementia, and history at the bedside is limited by cognitive status. Briefly discussed her care with her son by phone, reports that [facility] lives [facility] and they were concerned for lethargy and altered mental status. He confirms that she is DNR/DNI. No other history elicited. By chart review she is also followed by for medicine for bullous pemphigoid and is chronically on low-dose prednisone with intermittent doxycycline. Medical history: Reviewed as above Surgical history, reviewed in EMR, no documented surgical history Family history: Unable to obtain due to mental status Social history: No history of tobacco use, alcohol use, or substance use. Lives at [facility]. Principal Diagnosis UTI Discharge Exam Constitutional: + frail appearing; no acute distress ENMT: Mouth: + dry oral mucous membranes Neck: trachea midline Respiratory: normal respiratory effort Auscultation: + diminished lung sounds Cardiovascular: Rate/Rhythm: regular rate and regular rhythm Heart Sounds: + murmur Gastrointestinal (Abdomen): Inspection/Auscultation: normal bowel sounds Percussion/Palpation: abdomen soft; abdomen nontender Musculoskeletal: Head/Neck/Chest: normocephalic and head atraumatic Extremities: no cyanosis Skin: no rashes, warm and dry Discharge Data Allergies Allergy/AdvReac Type Severity Reaction Status Date / Time adhesive Allergy Unknown . Verified 04/27/19 20:00 Sulfa (Sulfonamide Allergy Unknown . Verified 04/27/19 20:00 Antibiotics) Consultations 04/27/19 22:20 ED Decision to Admit Stat Hospital Course (1) Urinary tract infection: Nelsy is an 83yo F with severe dementia who [facility] and who is admitted for urosepsis - UCx with pansensitive e. coli; BCx with gram neg bacilli and likely will reveal the same - treated with Zosyn, will transition to cefdinir at discharge due to elebated qtc. - Hypotension improved with fluids \ (2) Bacteremia: - BCx with gram neg bacili -treated as noted above. (3) Sepsis: - Related to UTI/Bacteremia - leukocytosis, hypotension, tachycardia, elevated lactic - Associated mild AST bump - likely due to mild shock liver in setting of sepsis; Troponin trending down and likely due to demand ischemia from sepsis -- WBC trending down; AST resolving - Treatment as above (4) Acute kidney injury: - Cr at 2.19 on admission - and improved with fluids and currently at 0.91 which appears around baseline - likely prerenal - Continue to monitor; avoid nephrotoxins (5) Hypothyroidism: - Continue Synthroid 88 mcg daily (6) Bullous pemphigoid: - Hold Azathioprine due to acute infection; Hold Prednisone 5 mg daily due to stress dosing (7) Dementia: - Seroquel 25 mg daily; Sertraline 100 mg HS Total Time Total Time Spent Total Time Spent (In Minutes): 32 Total Time Includes: Examination of the Patient, Discharge Planning and Medication Reconciliation Discharge Plan Discharge Items Patient Disposition: Transfer [facility] Reason For Visit: UROSEPSIS Discharge Diagnosis: Urosepsis Activity: Resume your previous activity Non-emergency contact: Primary Care Provider Call non-emergency contact if: you have any medication questions Follow-up/Referrals: [facility] [Primary Care Provider] - Diet: Low Sodium (2gm) Addtl Attending Provider Instructions: You have been hospitalized for an acute medical problem. During your stay at [facility], we have made an effort to correct the problem that brought you to the hospital while keeping you as comfortable as possible. Medications were used to bring your condition under control and your discharge instructions will include directions for any medications you should take after leaving the hospital. Please make sure you see your Primary Care Provider as part of your follow up plan. Pending Studies at Discharge: No Stand-Alone Forms: [facility] Skilled Items Patient informed of condition?: No DNR: No Discharge Level of Care: Skilled Communicable Disease: No Discharge Prognosis: Stable Lines: None Urinary Catheter: No Medications and DC Order Prescriptions: New cefdinir 300 mg capsule 300 mg PO BID 10 Days Qty: 20 RF: 0 Continued prednisone 5 mg tablet 5 mg PO DAILY RF: 0 melatonin 3 mg Tablet 3 mg PO HS RF: 0 levothyroxine 88 mcg tablet 88 mcg PO DAILY RF: 0 2 Shayne/Cc Supp 60 ml PO QID RF: 0 quetiapine [Seroquel] 25 mg tablet 25 mg PO DAILY RF: 0 acetaminophen [Tylenol] 325 mg Tablet 650 mg PO QID PRN (Reason: Fever Or Pain) RF: 0 sertraline [Zoloft] 100 mg tablet 100 mg PO HS RF: 0 azathioprine 50 mg tablet 50 mg PO DAILY RF: 0 aspirin [Aspir-81] 81 mg Tablet,Delayed Release (Dr/Ec) 81 mg PO DAILY RF: 0 promethazine 25 mg tablet 25 mg PO Q6 PRN (Reason: Nausea) RF: 0 calcium carbonate-vitamin D3 [Calcium 500 + D] 500 mg(1,250mg) -200 unit Tablet 1 tab PO DAILY RF: 0 PreserVision AREDS-2 [id number] Capsule 1 tab PO AMHS RF: 0 Discharge Orders: Discharge Order (Routine); Ordered 04/30/19 Ordered By: Bib Davidson Admission Data Admit Date/Time: 04/27/19 23:10 Attending Provider: Bib Davidson Admit Provider: Otf Choi Primary Care Provider: [facility] Other Providers: Ezekiel Toscano ; [facility], Other Interventions: Discharge Summary Assessment (RN) Last Done: 04/30/19 13:55 DC Date/Time DO NOT enter until pt leaves facility: 04/30/19 18:34
== END 2019-04-30 18:34 | DRG 871 ==
LOC: ED 17:35 → 3W 23:10 → SUATTDRO 23:10 → 3W 04-28 01:12

== ENCOUNTER 2019-05-09 18:44 | Inpatient (IN) ==
[2019-05-09] MEDS ORDERED: SODIUM CHLORIDE 0.9% 1000ML 1,000 ML IV ONE (19:06)
[2019-05-09] MEDS ORDERED: CEFEPIME 2,000 MG/20 ML VIAL IV STA (19:06)
[2019-05-09] MEDS ORDERED: LORazepam 1 MG/2 ML VIAL IV STA (19:06)
[2019-05-09] MEDS ORDERED: ACETAMINOPHEN 1,000 MG/100 ML VIAL IV STA (19:09)
--- NOTE | 2019-05-09 19:19 | Emergency Department Note ---
Entered by Molly Richards acting as a scribe for History of Present Illness General Chief complaint: Altered Mental Status Stated complaint: AMS, LETHARGIC, COMBATIVE Time Seen by Provider: 05/09/19 18:58 Source: patient History of Present Illness Onset (ago): day(s) (several) Location: head Pain Consistency: + other (persistent ) Quality: + other (altered mental status) Associated symptoms: + other (positive increased fatigue) The patient is a 83 year old female who presents to the Emergency Room with complaints of persistent altered mental status that began several days prior to arrival, per the patient's son at bedside. The patient's son reports that the patient has had increased fatigue during this time. Per the patient's son, the patient was discharged approximately 1 week ago with a UTI and states that her current symptoms are similar to this prior episode. The patient's son states that the patient has a history of dementia. The patient's family states that the patient fell just prior to Serena, approximately 2 weeks ago. History is limited secondary to mental status/dementia. Home Medications Home Medications Medication Instructions Recorded Confirmed Type PreserVision AREDS-2 1 tab PO AMHS 04/27/19 05/09/19 History acetaminophen [Tylenol] 650 mg PO QID PRN MDD 3G 04/27/19 05/09/19 History aspirin [Aspir-81] 81 mg PO DAILY 04/27/19 05/09/19 History azathioprine 50 mg PO QPM 04/27/19 05/09/19 History calcium carbonate-vitamin D3 1 tab PO QAM 04/27/19 05/09/19 History [Calcium 500 + D] levothyroxine 88 mcg PO DAILY 04/27/19 05/09/19 History melatonin 3 mg PO HS 04/27/19 05/09/19 History prednisone 5 mg PO QAM 04/27/19 05/09/19 History promethazine 25 mg PO Q6 PRN 04/27/19 04/27/19 History quetiapine [Seroquel] 25 mg PO DAILY 04/27/19 05/09/19 History sertraline [Zoloft] 100 mg PO HS 04/27/19 05/09/19 History cefdinir 300 mg PO BID 10 Days #20 cap 04/30/19 05/09/19 Rx acetaminophen [Tylenol] 650 mg PO TID PRN MDD 3G 05/09/19 05/09/19 History Allergies Allergy/AdvReac Type Severity Reaction Status Date / Time adhesive Allergy Unknown . Verified 05/09/19 20:02 Sulfa (Sulfonamide Allergy Unknown . Verified 05/09/19 20:02 Antibiotics) Past Med/Surg History Medical History Acute UTI (Acute) Bacteremia Candidal intertrigo Dementia DVT prophylaxis Hypothyroid (Chronic) Sepsis Septic shock (Acute) Shingles (Resolved) Surgical History No pertinent past surgical history Family History Other No pertinent family history in first degree relatives Social History Preferred Language: Tajik Communication Ability: Impaired [employer] Required: No Beliefs That Will Affect Care: None marital status: / Current Living Situation: Retirement Current Living Situation Comment: Living with daughter Feels Safe at Home: Yes Smoking Status: Unknown if ever smoked Hx Alcohol Use: No Hx Substance Use: No Review of Systems Unobtainable due to cognitive status Physical Exam Vital Signs Vital Signs - 24 hr 05/09/19 18:48 05/09/19 18:51 05/09/19 18:53 Temperature 37.6 C H Temperature Source Rectal Pulse Rate 107 H 98 H 102 H Pulse Rate from SpO2 Sensor 103 H Respiratory Rate 18 19 19 Respiratory Effort / Characteristics Non-Labored Spontaneous Respiratory Depth Normal Respiratory Pattern Regular Blood Pressure 114/97 114/97 Blood Pressure Mean 98 102 Pulse Oximetry 94 95 Oxygen Delivery Method Room Air Sepsis Recent Fever Within 48 Hours Yes Sepsis New/Unexplained Change in Mental Status Yes Sepsis Action Taken by Nursing Physician Notified 05/09/19 19:00 05/09/19 19:30 05/09/19 19:53 Temperature Temperature Source Pulse Rate 105 H 113 H 101 H Pulse Rate from SpO2 Sensor 110 H 105 H 100 H Respiratory Rate 16 27 H 23 Respiratory Effort / Characteristics Respiratory Depth Respiratory Pattern Blood Pressure 90/70 L Blood Pressure Mean 80 Pulse Oximetry 95 91 94 Oxygen Delivery Method Sepsis Recent Fever Within 48 Hours Sepsis New/Unexplained Change in Mental Status Sepsis Action Taken by Nursing 05/09/19 20:00 05/09/19 20:22 05/09/19 20:23 Temperature Temperature Source Pulse Rate 100 H 106 H 101 H Pulse Rate from SpO2 Sensor 99 H 98 H 104 H Respiratory Rate 19 22 21 Respiratory Effort / Characteristics Respiratory Depth Respiratory Pattern Blood Pressure 108/67 115/47 L Blood Pressure Mean 78 68 Pulse Oximetry 96 94 96 Oxygen Delivery Method Sepsis Recent Fever Within 48 Hours Sepsis New/Unexplained Change in Mental Status Sepsis Action Taken by Nursing 05/09/19 20:30 05/09/19 20:31 05/09/19 20:34 Temperature Temperature Source Pulse Rate 94 H 93 H 94 H Pulse Rate from SpO2 Sensor 98 H 99 H 94 H Respiratory Rate 19 18 18 Respiratory Effort / Characteristics Respiratory Depth Respiratory Pattern Blood Pressure 83/40 L 89/34 L Blood Pressure Mean 58 46 Pulse Oximetry 92 92 93 Oxygen Delivery Method Sepsis Recent Fever Within 48 Hours Sepsis New/Unexplained Change in Mental Status Sepsis Action Taken by Nursing 05/09/19 20:45 05/09/19 20:56 05/09/19 20:57 Temperature Temperature Source Pulse Rate 90 96 H 97 H Pulse Rate from SpO2 Sensor 88 91 H 91 H Respiratory Rate 18 20 22 Respiratory Effort / Characteristics Respiratory Depth Respiratory Pattern Blood Pressure 71/36 L 97/39 L Blood Pressure Mean 45 72 53 Pulse Oximetry 95 95 93 Oxygen Delivery Method Sepsis Recent Fever Within 48 Hours Sepsis New/Unexplained Change in Mental Status Sepsis Action Taken by Nursing 05/09/19 21:00 05/09/19 21:01 05/09/19 21:15 Temperature Temperature Source Pulse Rate 91 H 90 94 H Pulse Rate from SpO2 Sensor 90 87 94 H Respiratory Rate 19 16 19 Respiratory Effort / Characteristics Respiratory Depth Respiratory Pattern Blood Pressure 84/41 L 91/45 L Blood Pressure Mean 62 70 Pulse Oximetry 94 95 94 Oxygen Delivery Method Sepsis Recent Fever Within 48 Hours Sepsis New/Unexplained Change in Mental Status Sepsis Action Taken by Nursing 05/09/19 21:16 05/09/19 21:30 05/09/19 21:31 Temperature Temperature Source Pulse Rate 96 H 96 H 100 H Pulse Rate from SpO2 Sensor 96 H 97 H 102 H Respiratory Rate 20 20 26 H Respiratory Effort / Characteristics Respiratory Depth Respiratory Pattern Blood Pressure 99/50 L Blood Pressure Mean 74 Pulse Oximetry 95 94 95 Oxygen Delivery Method Sepsis Recent Fever Within 48 Hours Sepsis New/Unexplained Change in Mental Status Sepsis Action Taken by Nursing 05/09/19 21:45 05/09/19 22:00 05/09/19 22:01 Temperature Temperature Source Pulse Rate 104 H 96 H 98 H Pulse Rate from SpO2 Sensor 101 H 95 H 95 H Respiratory Rate 20 18 25 H Respiratory Effort / Characteristics Respiratory Depth Respiratory Pattern Blood Pressure 97/47 L 96/50 L Blood Pressure Mean 67 61 Pulse Oximetry 96 95 96 Oxygen Delivery Method Sepsis Recent Fever Within 48 Hours Sepsis New/Unexplained Change in Mental Status Sepsis Action Taken by Nursing 05/09/19 22:15 05/09/19 22:16 05/09/19 22:30 Temperature Temperature Source Pulse Rate 94 H 104 H 102 H Pulse Rate from SpO2 Sensor 95 H 103 H 99 H Respiratory Rate 21 18 22 Respiratory Effort / Characteristics Respiratory Depth Respiratory Pattern Blood Pressure 96/42 L 96/63 L Blood Pressure Mean 57 67 Pulse Oximetry 95 98 97 Oxygen Delivery Method Sepsis Recent Fever Within 48 Hours Sepsis New/Unexplained Change in Mental Status Sepsis Action Taken by Nursing 05/09/19 22:31 05/09/19 22:45 Temperature Temperature Source Pulse Rate 91 H 97 H Pulse Rate from SpO2 Sensor 100 H 105 H Respiratory Rate 21 20 Respiratory Effort / Characteristics Respiratory Depth Respiratory Pattern Blood Pressure 88/59 L Blood Pressure Mean 68 Pulse Oximetry 94 98 Oxygen Delivery Method Sepsis Recent Fever Within 48 Hours Sepsis New/Unexplained Change in Mental Status Sepsis Action Taken by Nursing GENERAL: Patient is in no acute distress. HEENT: No acute trauma, normocephalic atraumatic, mucous membranes are dry, no nasal congestion, no scleral icterus. NECK: No stridor, no adenopathy, no meningismus, trachea is midline. LUNGS: Clear to auscultation bilaterally, no wheeze, no rhonchi, breath sounds equal. HEART: 2/6 systolic murmur. Mildly tachycardic, regular rhythm. ABDOMEN: Soft, nontender, bowel sounds positive, no hernias, no peritonitis. EXTREMITIES: No cyanosis or edema, full range of motion of all the joints without pain or difficulty, no signs for acute trauma. NEUROLOGIC: Awake, confused, moves all extremities. Slightly agitated. SKIN: No rash, no jaundice, no diaphoresis. Contusions of different ages to all 4 extremities. Course Course 190: Past medical records reviewed. The patient was evaluated in room A3. A complete history and physical exam was performed. The patient was discharged on 04/30/19 with a diagnosis of UTI. The patient had E.coli growing in her urine that was hines sensitive. The patient also had E.coli in her blood during that visit as well. 2047: I discussed the case with the patient's son who states that his primary wish is for the patient to be comfortable. The patient's son states that he understands that the patient may not survive, but states that he just does not want the patient to be in any pain. The patient was sleeping on my reevaluation. 2100: I discussed the case with Dr. Toscano[facility] Hospitalist who accepts the patient for further evaluation. Administered Medications Discontinued Medications Sodium Chloride (Nss 1000ml) 1,000 mls @ 999 mls/hr IV .Q1H1M ONE Stop: 05/09/19 20:06 Last Infusion: 05/09/19 20:55 Dose: 0 mls/hr Documented by: [id number] Admin: 05/09/19 19:53 Dose: 999 mls/hr Documented by: [id number] Lorazepam (Ativan) 1 mg in 2 mls @ 2 mls/min IV NOW STA Stop: 05/09/19 19:07 Last Admin: 05/09/19 19:54 Dose: 2 mls/min Documented by: [id number] Cefepime HCl (Maxipime) 2,000 mg in 20 mls @ 5 mls/min IV NOW STA; Protocol Stop: 05/09/19 19:09 Last Admin: 05/09/19 19:53 Dose: 5 mls/min Documented by: [id number] Acetaminophen (Ofirmev) 1,000 mg in 100 mls @ 400 mls/hr IV NOW STA Stop: 05/09/19 19:23 Last Infusion: 05/09/19 20:23 Dose: 0 mls/hr Documented by: [id number] Admin: 05/09/19 19:54 Dose: 400 mls/hr Documented by: [id number] Sodium Chloride (Nss 1000ml) 500 mls @ 999 mls/hr IV .Q31M ONE Stop: 05/09/19 20:55 Last Infusion: 05/09/19 21:11 Dose: 0 mls/hr Documented by: [id number] Admin: 05/09/19 20:35 Dose: 999 mls/hr Documented by: [id number] Potassium Chloride (K Chema / Wtr) 10 meq in 100 mls @ 100 mls/hr IV ONE ONE Stop: 05/09/19 21:24 Last Infusion: 05/09/19 21:46 Dose: 0 mls/hr Documented by: [id number] Admin: 05/09/19 20:35 Dose: 100 mls/hr Documented by: [id number] Sodium Chloride (Nss 1000ml) 500 mls @ 999 mls/hr IV .Q31M ONE Stop: 05/09/19 21:18 Last Infusion: 05/09/19 21:26 Dose: 0 mls/hr Documented by: [id number] Admin: 05/09/19 20:54 Dose: 999 mls/hr Documented by: [id number] Critical Care Time Critical Care Time: Yes Total Critical Care Time: 51 I have personally spent 51 minutes of critical care time in the direct management of this patient. This includes bedside care, interpretation of diagnostic studies, and testing, discussion with consultants, patient, and family members, and other required patient management activities. This 51 minutes is in excess of all separately billable procedures. Medical Decision Making Differential Diagnosis Differential diagnoses include sepsis, pneumonia, UTI, dehydration, electrolyte imbalance, renal or liver failure, intracranial bleeding, stroke, bacteremia, and others were considered. Medical Records Attestation: I reviewed the patient's medical records. Home Medications Current Medication List: was personally reviewed by me Laboratory Data Attestation: I reviewed the patient's lab results. Result diagrams: 05/09/19 19:38 05/09/19 19:38 Lab Results 05/09/19 05/09/19 05/09/19 Range/Units 19:38 19:38 19:38 WBC 14.60 H (4.8-10.8) K/uL RBC 4.07 L (4.2-5.4) M/uL Hgb 12.2 (12.0-16.0) g/dL Hct 36.6 L (37-47) % MCV 89.9 (80-100) fL MCH 30.0 (25-34) pg MCHC 33.3 (32-36) g/dL RDW Std Deviation 49.7 H (36.4-46.3) fL RDW Coeff of Roger 15.3 H (11.5-14.5) % Plt Count 182 (130-400) K/uL MPV 11.8 H (7.4-10.4) fL Immature Gran % (Auto) 0.6 % Neut % (Auto) 88.6 % Lymph % (Auto) 5.1 % [place] % (Auto) 5.2 % Eos % (Auto) 0.4 % Baso % (Auto) 0.1 % Immature Gran # (Auto) 0.09 H (0.00-0.02) K/uL Neut # (Auto) 12.93 H (1.4-6.5) K/uL Lymph # (Auto) 0.75 L (1.2-3.4) K/uL [place] # (Auto) 0.76 H (0.11-0.59) K/uL Eos # (Auto) 0.06 (0-0.5) K/uL Baso # (Auto) 0.01 (0-0.2) K/uL Ovalocytes 1+ Echinocytes 1+ PT 13.2 H (9.0-12.0) Seconds INR 1.3 H (0.9-1.1) APTT 22.7 (21.0-31.0) Seconds PTT Ratio 0.8 Sodium (136-145) mmol/L Potassium (3.5-5.1) mmol/L Chloride (98-107) mmol/L Carbon Dioxide (21-32) mmol/L Anion Gap (3-11) BUN (7-18) mg/dl Creatinine (0.6-1.2) mg/dl Est Cr Clr Drug Dosing Est GFR ( Amer) Est GFR (Non-Af Amer) BUN/Creatinine Ratio (10-20) Glucose (70-99) mg/dl Lactate (0.4-2.0) mmol/L Calcium (8.5-10.1) mg/dl Magnesium (1.8-2.4) mg/dl Total Bilirubin (0.2-1) mg/dl AST (15-37) U/L ALT (12-78) U/L Alkaline Phosphatase (45-117) U/L Troponin I (0-0.045) ng/ml Total Protein (6.4-8.2) gm/dl Albumin (3.4-5.0) gm/dl Globulin (2.5-4.0) gm/dl Albumin/Globulin Ratio (0.9-2) Procalcitonin 0.79 H (0-0.5) ng/ml Urine Color Urine Appearance (Clear) Urine pH (4.5-7.5) Ur Specific [place] (1.000-1.030) Urine Protein (Negative) Urine Glucose (UA) (Negative) Urine Ketones (Negative) Urine Blood (Negative) Urine Nitrite (Negative) Urine Bilirubin (Negative) Urine Urobilinogen (Negative) Ur Leukocyte Esterase (Negative) Urine WBC (Auto) (0-5) /hpf Urine RBC (Auto) (0-4) /hpf U Hyaline Cast (Auto) (0-5) /lpf U Epithel Cells (Auto) (0-5) /lpf Urine Bacteria (Auto) (Negative) Ur Renal Epithelial Cell (0-5) /lpf Granular Casts (0) /lpf Waxy Casts (0) /lpf Urine Yeast (None Prsent) Influenza Type A (PCR) (Neg) Influenza Type B (PCR) (Neg) 05/09/19 05/09/19 05/09/19 Range/Units 19:38 19:38 19:40 WBC (4.8-10.8) K/uL RBC (4.2-5.4) M/uL Hgb (12.0-16.0) g/dL Hct (37-47) % MCV (80-100) fL MCH (25-34) pg MCHC (32-36) g/dL RDW Std Deviation (36.4-46.3) fL RDW Coeff of Roger (11.5-14.5) % Plt Count (130-400) K/uL MPV (7.4-10.4) fL Immature Gran % (Auto) % Neut % (Auto) % Lymph % (Auto) % [place] % (Auto) % Eos % (Auto) % Baso % (Auto) % Immature Gran # (Auto) (0.00-0.02) K/uL Neut # (Auto) (1.4-6.5) K/uL Lymph # (Auto) (1.2-3.4) K/uL [place] # (Auto) (0.11-0.59) K/uL Eos # (Auto) (0-0.5) K/uL Baso # (Auto) (0-0.2) K/uL Ovalocytes Echinocytes PT (9.0-12.0) Seconds INR (0.9-1.1) APTT (21.0-31.0) Seconds PTT Ratio Sodium 150 H (136-145) mmol/L Potassium 2.7 L (3.5-5.1) mmol/L Chloride 119 H (98-107) mmol/L Carbon Dioxide 26 (21-32) mmol/L Anion Gap 5.0 (3-11) BUN 14 (7-18) mg/dl Creatinine 0.79 (0.6-1.2) mg/dl Est Cr Clr Drug Dosing Not Reportable Est GFR ( Amer) 80.2 Est GFR (Non-Af Amer) 69.2 BUN/Creatinine Ratio 17.9 (10-20) Glucose 107 H (70-99) mg/dl Lactate 2.6 H* (0.4-2.0) mmol/L Calcium 8.1 L (8.5-10.1) mg/dl Magnesium 2.1 (1.8-2.4) mg/dl Total Bilirubin 1.6 H (0.2-1) mg/dl AST 66 H (15-37) U/L ALT 38 (12-78) U/L Alkaline Phosphatase 131 H (45-117) U/L Troponin I 5.940 H* (0-0.045) ng/ml Total Protein 5.6 L (6.4-8.2) gm/dl Albumin 2.0 L (3.4-5.0) gm/dl Globulin 3.6 (2.5-4.0) gm/dl Albumin/Globulin Ratio 0.6 L (0.9-2) Procalcitonin (0-0.5) ng/ml Urine Color Urine Appearance (Clear) Urine pH (4.5-7.5) Ur Specific [place] (1.000-1.030) Urine Protein (Negative) Urine Glucose (UA) (Negative) Urine Ketones (Negative) Urine Blood (Negative) Urine Nitrite (Negative) Urine Bilirubin (Negative) Urine Urobilinogen (Negative) Ur Leukocyte Esterase (Negative) Urine WBC (Auto) (0-5) /hpf Urine RBC (Auto) (0-4) /hpf U Hyaline Cast (Auto) (0-5) /lpf U Epithel Cells (Auto) (0-5) /lpf Urine Bacteria (Auto) (Negative) Ur Renal Epithelial Cell (0-5) /lpf Granular Casts (0) /lpf Waxy Casts (0) /lpf Urine Yeast (None Prsent) Influenza Type A (PCR) Neg for Influ A (Neg) Influenza Type B (PCR) Neg for Influ B (Neg) 05/09/19 05/09/19 Range/Units 19:40 21:25 WBC (4.8-10.8) K/uL RBC (4.2-5.4) M/uL Hgb (12.0-16.0) g/dL Hct (37-47) % MCV (80-100) fL MCH (25-34) pg MCHC (32-36) g/dL RDW Std Deviation (36.4-46.3) fL RDW Coeff of Roger (11.5-14.5) % Plt Count (130-400) K/uL MPV (7.4-10.4) fL Immature Gran % (Auto) % Neut % (Auto) % Lymph % (Auto) % [place] % (Auto) % Eos % (Auto) % Baso % (Auto) % Immature Gran # (Auto) (0.00-0.02) K/uL Neut # (Auto) (1.4-6.5) K/uL Lymph # (Auto) (1.2-3.4) K/uL [place] # (Auto) (0.11-0.59) K/uL Eos # (Auto) (0-0.5) K/uL Baso # (Auto) (0-0.2) K/uL Ovalocytes Echinocytes PT (9.0-12.0) Seconds INR (0.9-1.1) APTT (21.0-31.0) Seconds PTT Ratio Sodium (136-145) mmol/L Potassium (3.5-5.1) mmol/L Chloride (98-107) mmol/L Carbon Dioxide (21-32) mmol/L Anion Gap (3-11) BUN (7-18) mg/dl Creatinine (0.6-1.2) mg/dl Est Cr Clr Drug Dosing Est GFR ( Amer) Est GFR (Non-Af Amer) BUN/Creatinine Ratio (10-20) Glucose (70-99) mg/dl Lactate 2.2 H* (0.4-2.0) mmol/L Calcium (8.5-10.1) mg/dl Magnesium (1.8-2.4) mg/dl Total Bilirubin (0.2-1) mg/dl AST (15-37) U/L ALT (12-78) U/L Alkaline Phosphatase (45-117) U/L Troponin I (0-0.045) ng/ml Total Protein (6.4-8.2) gm/dl Albumin (3.4-5.0) gm/dl Globulin (2.5-4.0) gm/dl Albumin/Globulin Ratio (0.9-2) Procalcitonin (0-0.5) ng/ml Urine Color Dark Yellow Urine Appearance Clear (Clear) Urine pH 6.0 (4.5-7.5) Ur Specific [place] 1.019 (1.000-1.030) Urine Protein Trace H (Negative) Urine Glucose (UA) Negative (Negative) Urine Ketones Trace H (Negative) Urine Blood 3+ H (Negative) Urine Nitrite Positive A (Negative) Urine Bilirubin Negative (Negative) Urine Urobilinogen Negative (Negative) Ur Leukocyte Esterase Trace H (Negative) Urine WBC (Auto) 10-30 H (0-5) /hpf Urine RBC (Auto) 10-30 H (0-4) /hpf U Hyaline Cast (Auto) 10-30 H (0-5) /lpf U Epithel Cells (Auto) >30 H (0-5) /lpf Urine Bacteria (Auto) Negative (Negative) Ur Renal Epithelial Cell 0-5 (0-5) /lpf Granular Casts 1-5 H (0) /lpf Waxy Casts 1-5 H (0) /lpf Urine Yeast Budding A (None Prsent) Influenza Type A (PCR) (Neg) Influenza Type B (PCR) (Neg) Imaging Data Radiologist's Impression: Radiology results as stated below per my review and the radiologist's interpretation: XR chest 1V portable HISTORY: SEPSIS COMPARISON: Chest 04/30/2019. FINDINGS: No pneumothorax. The heart remains enlarged. Progressive perihilar interstitial and vascular thickening most pronounced within the upper lobes. This likely represents moderate pulmonary edema. Suspect trace bilateral pleural effusions. IMPRESSION: Moderate pulmonary edema which has progressed. Trace bilateral pleural effusions. ACT 112: Negative or not required by law. Electronically signed by: Saul Abraham M.D. 05/09/2019 8:[address] NON[address]AST CT DOSE: 614.27 mGy.cm HISTORY: confusion TECHNIQUE: Multiaxial CT images of the head were performed without the use of intravenous contrast. Automated exposure control was utilized for this study. A dose lowering technique was utilized adhering to the principles of ALARA. Comparison: Head CT 10/11/2017. Findings: The paranasal sinuses and mastoid air cells are clear. The calvarium and skull base are intact. Mild motion artifact. Focal hypodensity within the left medial parietal/occipital lobe best seen on axial image 16. This measures 3.5 cm and appears to represent vasogenic edema. This hypodense area does demonstrate slight increased density centrally. Mild atrophy and microvascular ischemic changes are noted. No hematoma or midline shift. Impression: A 3.5 cm hypodensity within the left medial parietal/occipital lobe. This appears to represent vasogenic edema and demonstrates slight increased density centrally. Therefore, this could represent a mass or possibly an infarct. Follow-up brain MRI is recommended for further evaluation. ACT 112: Negative or not required by law. Electronically signed by: Saul Abraham M.D. 05/09/2019 8:33 PM ECG Data Attestation: I personally reviewed and interpreted this ECG as follows: Indication: + altered mental status and + other (tachycardia) Rate (beats per minute): 106 Rhythm: + sinus tachycardia ECG Intervals/blocks: + First degree AV block and + Prolonged QT (533) ECG ST segments: no ST elevation ECG Findings: + PACs and + Other (artifact present) Blood Pressure Blood Pressure Findings: Low blood pressure Blood Pressure Disposition: further management by hospitalist [facility] Narrative There is a moderate leukocytosis, this of course could be consistent with infection. No worrisome anemia. The patient had a normal platelet count. INR was mildly elevated at 1.3. Renal panel testing shows evidence for dehydration with a sodium of 150. Potassium was low at 2.7. There were a few subtle liver enzyme elevations. Procalcitonin and lactic acid level were both somewhat elevated consistent with infection. EKG showed a sinus rhythm, no evidence for acute DC. The patient's cardiac troponin returned quite elevated, this is consistent with a recent DC. Brain CT did not show any acute bleed or mass-effect. There was a lesion noted consistent with a potential malignancy versus recent infarct. Chest film shows potential CHF versus bilateral pneumonia. Urinalysis was consistent with possible infection. Urine culture and blood cultures are pending. Influenza testing was negative. The patient was quite ill. She was aggressively managed. Of note, she is a DNR. The patient was given IV Tylenol, IV cefepime. She was given 1 mg of IV Ativan for anxiety and to help with comfort. Patient was given IV potassium. She received IV saline, a total of 2 L of saline were ordered. I had a long discussion with the patient's son. I did explain that his mother may not survive this hospitalization. He understands. His main concern was that she remain comfortable. We are not to perform overly aggressive measures. IV fluids, IV antibiotics were acceptable as per the son. The patient presents septic. The source is not completely clear but both the urine and lungs seem potential sources for this infection. Patient also appears to have suffered a recent DC. She is dehydrated and hypernatremic. Her potassium is low. She has a new lesion noted on CT imaging. During her ER stay, she has been somewhat hypotensive despite fluid hydration. The patient is in need of a hospital stay, as mentioned above, she is quite ill. I did speak to case management, I talked with the on-call hospitalist. Impression & Plan Sepsis, Dehydration, Hypokalemia, Hypotension, Hypernatremia, Myocardial infarction Discharge Plan Visit Data Chief Complaint: Altered Mental Status Stated Complaint: AMS, LETHARGIC, COMBATIVE ED Provider: Moustapha Barnes Discharge Problem: Sepsis, Dehydration, Hypokalemia, Hypotension, Hypernatremia, Myocardial infarction Patient Disposition: Being Evaluated by Hospitalist Discharge Instructions Interventions: ED Discharge Assessment Last Done: 05/09/19 23:25 Discharge Problem: Sepsis Qualifiers: Sepsis type: sepsis due to unspecified organism Sepsis acute organ dysfunction status: unspecified Qualified Code(s): A41.9 - Sepsis, unspecified organism Hypotension Qualifiers: Hypotension type: unspecified hypotension type Qualified Code(s): I95.9 - Hypotension, unspecified Myocardial infarction Qualifiers: Myocardial infarction type: unspecified Involved coronary artery: unspecified coronary artery Qualified Code(s): I21.9 - Acute myocardial infarction, unspecified The scribe's documentation has been prepared under my direction and personally reviewed by me in its entirety. I confirm that the note above accurately reflects all work, treatment, procedures, and medical decision making performed by me.
[2019-05-09 19:54] LABS: Hematocrit (blood only) 36.6 % (37-47); Hemoglobin 12.2 g/dL (12.0-16.0); Mean Corpuscular Hgb Conc 33.3 g/dL (32-36); Mean Corpuscular Volume 89.9 fL (80-100); Mean Platelet Volume 11.8 fL (7.4-10.4); Platelet Count 182 K/uL (130-400); RDW Coefficient of Variation 15.3 % (11.5-14.5); RDW Standard Deviation 49.7 fL (36.4-46.3); Red Blood Count 4.07 M/uL (4.2-5.4)
[2019-05-09 20:02] LABS: Appearance Urine Clear (Clear); Bacteria Urine Automated Negative (Negative); Bilirubin Urine Negative (Negative); Blood Urine 3+ (Negative); Color Urine Dark Yellow; Epithelial Cell Urine Auto >30 /lpf (0-5); Glucose Urine UA Negative (Negative); Ketones Urine Trace (Negative); Leukocyte Esterase Urine Trace (Negative); Nitrite Urine Positive (Negative); Protein Urine Trace (Negative); Specific Gravity Urine 1.019 (1.000-1.030); Urobilinogen Urine Negative (Negative)
[2019-05-09 20:06] LABS: INR 1.3 (0.9-1.1); Partial Thromboplastin Ratio 0.8; Partial Thromboplastin Time 22.7 Seconds (21.0-31.0); Prothrombin Time 13.2 Seconds (9.0-12.0)
[2019-05-09 20:16] LABS: Renal Epithelial Cells Urine 0-5 /lpf (0-5)
[2019-05-09 20:16] LABS: Alanine Aminotransferase 38 U/L (12-78); Aspartate Aminotransferase 66 U/L (15-37); BUN Creatinine Ratio 17.9 (10-20); Blood Urea Nitrogen 14 mg/dl (7-18); Calcium 8.1 mg/dl (8.5-10.1); Carbon Dioxide 26 mmol/L (21-32); Chloride 119 mmol/L (98-107); Est GFR (African American) 80.2; Est GFR (Non-African American) 69.2; Glucose 107 mg/dl (70-99); Magnesium 2.1 mg/dl (1.8-2.4); Potassium 2.7 mmol/L (3.5-5.1); Sodium 150 mmol/L (136-145)
[2019-05-09] MEDS ORDERED: POTASSIUM CHLORIDE / WTR 10 MEQ/100 ML PLCT IV ONE (20:25)
[2019-05-09] MEDS ORDERED: SODIUM CHLORIDE 0.9% 1000ML 500 ML IV ONE ×2 (20:25→20:48)
[2019-05-09 20:26] LABS: Basophils # (auto) 0.01 K/uL (0-0.2); Basophils % (auto) 0.1 %; Echinocytes 1+; Eosinophils # (auto) 0.06 K/uL (0-0.5); Eosinophils % (auto) 0.4 %; Immature Granulocytes # (auto) 0.09 K/uL (0.00-0.02); Immature Granulocytes % (auto) 0.6 %; Lymphocytes # (auto) 0.75 K/uL (1.2-3.4); Lymphocytes % (auto) 5.1 %; Monocytes # (auto) 0.76 K/uL (0.11-0.59); Monocytes % (auto) 5.2 %; Neutrophils # (auto) 12.93 K/uL (1.4-6.5); Neutrophils % (auto) 88.6 %; Ovalocytes 1+
[2019-05-09 20:27] LABS: Albumin Globulin Ratio 0.6 (0.9-2); Alkaline Phosphatase 131 U/L (45-117); Bilirubin,Total 1.6 mg/dl (0.2-1); Globulin 3.6 gm/dl (2.5-4.0); Total Protein 5.6 gm/dl (6.4-8.2)
[2019-05-09 20:31] LABS: Influenza A virus by PCR Neg for Influ A (Neg); Influenza B virus by PCR Neg for Influ B (Neg)
--- NOTE | 2019-05-09 20:35 | CT Scan Report ---
HEAD CT NONCONTRAST CT DOSE: 614.27 mGy.cm HISTORY: confusion TECHNIQUE: Multiaxial CT images of the head were performed without the use of intravenous contrast. A utomated exposure control was utilized for this study. A dose lowering technique was utilized adheri ng to the principles of ALARA. Comparison: Head CT 10/11/2017. Findings: The paranasal sinuses and mastoid air cells are clear. The calvarium and skull base are int act. Mild motion artifact. Focal hypodensity within the left medial parietal/occipital lobe best seen on axial image 16. This measures 3.5 cm and appears to represent vasogenic edema. This hypodense are a does demonstrate slight increased density centrally. Mild atrophy and microvascular ischemic change s are noted. No hematoma or midline shift. Impression: A 3.5 cm hypodensity within the left medial parietal/occipital lobe. This appears to represent vasoge astrdi edema and demonstrates slight increased density centrally. Therefore, this could represent a mass or possibly an infarct. Follow-up brain MRI is recommended for further evaluation. ACT 112: Negative or not required by law. Electronically signed by: Saul Abraham M.D. 05/09/2019 8:33 PM
--- NOTE | 2019-05-09 20:48 | XRay Report ---
XR chest 1V portable HISTORY: SEPSIS COMPARISON: Chest 04/30/2019. FINDINGS: No pneumothorax. The heart remains enlarged. Progressive perihilar interstitial and vascula r thickening most pronounced within the upper lobes. This likely represents moderate pulmonary edema. Suspect trace bilateral pleural effusions. IMPRESSION: Moderate pulmonary edema which has progressed. Trace bilateral pleural effusions. ACT 112: Negative or not required by law. Electronically signed by: Saul Abraham M.D. 05/09/2019 8:47 PM
--- NOTE | 2019-05-09 22:57 | History & Physical Report ---
Date of Service May 09, 2019 Assessment & Plan (1) Sepsis: Sepsis due to urinary tract infection- Placed on Zosyn 4.5 g IV every 8 hours. Follow urine culture and sensitivities. Rehydration with IV fluids as noted below. Present on Admission?: Yes (2) Acute UTI: See above Present on Admission?: Yes (3) Hypernatremia: Sodium 150 upon entry. Given 2 L normal saline rehydration in the ED. Placed on D5 1/4 NSS plus KCl 20 mEq at 60 mils per hour. Albumin 2.[address] on albumin 25 g IV every 6 hours x4 doses Present on Admission?: Yes (4) Myocardial infarction: Her son does not want aggressive assessment or therapy don. Would not test additional troponins or echocardiogram. E Present on Admission?: Yes (5) Bullous pemphigoid: While n.p.o., will not be able to take azathioprine or prednisone. Placed on stress dose steroids hydrocortisone 100mg IV every 8 hours Present on Admission?: Yes History of Present Illness Chief Complaint: The patient is brought to the emergency department due to altered mental status, lethargy, and combativeness over the past several days prior to arrival, as reported by the patient's son who is at bedside. Primary Care Provider: [facility] The patient is an 83-year-old female with a past medical history including UTI, septic shock, myocardial infarction, hypothyroidism, dementia, bullous pemphigoid and bacteremia. She presents to the emergency department with altered mental status with increased lethargy and combativeness. She did have a fall just prior to Serena 2 weeks ago. The patient is a resident from [facility], and was admitted to the hospital from 04/27-04/30/2019 for sepsis due to urinary tract infection. Her son reports that her symptoms had improved at that admission, however, the symptoms today are similar to that recent episode. The patient is unable to contribute to her HPI or review of systems due to altered mental state Allergies Allergy/AdvReac Type Severity Reaction Status Date / Time adhesive Allergy Unknown . Verified 05/09/19 20:02 Sulfa (Sulfonamide Allergy Unknown . Verified 05/09/19 20:02 Antibiotics) Home Medications Home Medications Medication Instructions Recorded Confirmed Type PreserVision AREDS-2 1 tab PO AMHS 04/27/19 05/09/19 History acetaminophen [Tylenol] 650 mg PO QID PRN MDD 3G 04/27/19 05/09/19 History aspirin [Aspir-81] 81 mg PO DAILY 04/27/19 05/09/19 History azathioprine 50 mg PO QPM 04/27/19 05/09/19 History calcium carbonate-vitamin D3 1 tab PO QAM 04/27/19 05/09/19 History [Calcium 500 + D] levothyroxine 88 mcg PO DAILY 04/27/19 05/09/19 History melatonin 3 mg PO HS 04/27/19 05/09/19 History prednisone 5 mg PO QAM 04/27/19 05/09/19 History promethazine 25 mg PO Q6 PRN 04/27/19 04/27/19 History quetiapine [Seroquel] 25 mg PO DAILY 04/27/19 05/09/19 History sertraline [Zoloft] 100 mg PO HS 04/27/19 05/09/19 History cefdinir 300 mg PO BID 10 Days #20 cap 04/30/19 05/09/19 Rx acetaminophen [Tylenol] 650 mg PO TID PRN MDD 3G 05/09/19 05/09/19 History Past Med/Surg History Medical History Acute UTI (Acute) Bacteremia Candidal intertrigo Dementia DVT prophylaxis Hypothyroid (Chronic) Sepsis Septic shock (Acute) Shingles (Resolved) Surgical History No pertinent past surgical history Family History Other No pertinent family history in first degree relatives Social History Preferred Language: Stateless Communication Ability: Unable Communication Ability Comment: Pt unable to respond due to dementia Shrimp Picker Required: No Beliefs That Will Affect Care: None marital status: / Current Living Situation: Personal Care Facility Current Living Situation Comment: Living with daughter Feels Safe at Home: Yes Smoking Status: Unknown if ever smoked Review of Systems Review of Systems: Unobtainable due to cognitive status and Unobtainable due to reduced consciousness Physical Exam Physical Exam: The patient is obtunded, normocephalic and atraumatic, lying in bed and in no acute distress. HEENT--PERRL, EOMI, mucous membranes and oropharynx dry. Neck--supple. No JVD. No bruits. Thyroid normal, trachea midline, no adenopathy . Heart--normal S1 and S2. No murmurs, rubs or gallops. Lungs--clear bilaterally, no respiratory distress, no accessory muscle use. Abdomen--normal bowel sounds and soft. Nontender. Nondistended. Mildly tympanitic Extremities--no cyanosis or clubbing. No edema. There are good distal pulses b/l. Dermatologic--normal skin turgor, normal color, no abnormal lymph nodes, no rash. Neurologic--cranial nerves II through XII grossly intact. Rheumatologic--limited exam Psychiatric--obtunded Results & Data Vital Signs (Past 12 Hours) Vital Signs Temp Pulse Resp BP Pulse Ox 05/09/19 22:45 97 H 20 88/59 L 98 05/09/19 22:31 91 H 21 94 05/09/19 22:30 102 H 22 96/63 L 97 05/09/19 22:16 104 H 18 98 05/09/19 22:15 94 H 21 96/42 L 95 05/09/19 22:01 98 H 25 H 96 05/09/19 22:00 96 H 18 96/50 L 95 05/09/19 21:45 104 H 20 97/47 L 96 05/09/19 21:31 100 H 26 H 95 05/09/19 21:30 96 H 20 99/50 L 94 05/09/19 21:16 96 H 20 95 05/09/19 21:15 94 H 19 91/45 L 94 05/09/19 21:01 90 16 95 05/09/19 21:00 91 H 19 84/41 L 94 05/09/19 20:57 97 H 22 97/39 L 93 05/09/19 20:56 96 H 20 95 05/09/19 20:45 90 18 71/36 L 95 05/09/19 20:34 94 H 18 89/34 L 93 05/09/19 20:31 93 H 18 92 05/09/19 20:30 94 H 19 83/40 L 92 05/09/19 20:23 101 H 21 96 01/08/20 20:22 106 H 22 115/47 L 94 05/09/19 20:00 100 H 19 108/67 96 05/09/19 19:53 101 H 23 90/70 L 94 05/09/19 19:30 113 H 27 H 91 05/09/19 19:00 105 H 16 95 05/09/19 18:53 99.7 F H 102 H 19 114/97 95 05/09/19 18:51 98 H 19 94 05/09/19 18:48 107 H 18 114/97 Laboratory Results Laboratory Results WBC 14.60 K/uL (4.8-10.8) H 05/09/19 19:38 RBC 4.07 M/uL (4.2-5.4) L 05/09/19 19:38 Hgb 12.2 g/dL (12.0-16.0) 05/09/19 19:38 Hct 36.6 % (37-47) L 05/09/19 19:38 MCV 89.9 fL (80-100) 05/09/19 19:38 MCH 30.0 pg (25-34) 05/09/19 19:38 MCHC 33.3 g/dL (32-36) 05/09/19 19:38 RDW Std Deviation 49.7 fL (36.4-46.3) H 05/09/19 19:38 RDW Coeff of Roger 15.3 % (11.5-14.5) H 05/09/19 19:38 Plt Count 182 K/uL (130-400) 05/09/19 19:38 MPV 11.8 fL (7.4-10.4) H 05/09/19 19:38 Immature Gran % (Auto) 0.6 % 05/09/19 19:38 Neut % (Auto) 88.6 % 05/09/19 19:38 Lymph % (Auto) 5.1 % 05/09/19 19:38 [place] % (Auto) 5.2 % 05/09/19 19:38 Eos % (Auto) 0.4 % 05/09/19 19:38 Baso % (Auto) 0.1 % 05/09/19 19:38 Immature Gran # (Auto) 0.09 K/uL (0.00-0.02) H 05/09/19 19:38 Neut # (Auto) 12.93 K/uL (1.4-6.5) H 05/09/19 19:38 Lymph # (Auto) 0.75 K/uL (1.2-3.4) L 05/09/19 19:38 [place] # (Auto) 0.76 K/uL (0.11-0.59) H 05/09/19 19:38 Eos # (Auto) 0.06 K/uL (0-0.5) 05/09/19 19:38 Baso # (Auto) 0.01 K/uL (0-0.2) 05/09/19 19:38 Ovalocytes 1+ 05/09/19 19:38 Echinocytes 1+ 05/09/19 19:38 PT 13.2 Seconds (9.0-12.0) H 05/09/19 19:38 INR 1.3 (0.9-1.1) H 05/09/19 19:38 APTT 22.7 Seconds (21.0-31.0) 05/09/19 19:38 PTT Ratio 0.8 05/09/19 19:38 Sodium 150 mmol/L (136-145) H 05/09/19 19:38 Potassium 2.7 mmol/L (3.5-5.1) L 05/09/19 19:38 Chloride 119 mmol/L (98-107) H 05/09/19 19:38 Carbon Dioxide 26 mmol/L (21-32) 05/09/19 19:38 Anion Gap 5.0 (3-11) 05/09/19 19:38 BUN 14 mg/dl (7-18) 05/09/19 19:38 Creatinine 0.79 mg/dl (0.6-1.2) 05/09/19 19:38 Est Cr Clr Drug Dosing Not Reportable 05/09/19 19:38 Est GFR ( Amer) 80.2 05/09/19 19:38 Est GFR (Non-Af Amer) 69.2 05/09/19 19:38 BUN/Creatinine Ratio 17.9 (10-20) 05/09/19 19:38 Glucose 107 mg/dl (70-99) H 05/09/19 19:38 Lactate 2.2 mmol/L (0.4-2.0) H* 05/09/19 21:25 Calcium 8.1 mg/dl (8.5-10.1) L 05/09/19 19:38 Magnesium 2.1 mg/dl (1.8-2.4) 05/09/19 19:38 Total Bilirubin 1.6 mg/dl (0.2-1) H 05/09/19 19:38 AST 66 U/L (15-37) H 05/09/19 19:38 ALT 38 U/L (12-78) 05/09/19 19:38 Alkaline Phosphatase 131 U/L (45-117) H 05/09/19 19:38 Troponin I 5.940 ng/ml (0-0.045) H* 05/09/19 19:38 Total Protein 5.6 gm/dl (6.4-8.2) L 05/09/19 19:38 Albumin 2.0 gm/dl (3.4-5.0) L 05/09/19 19:38 Globulin 3.6 gm/dl (2.5-4.0) 05/09/19 19:38 Albumin/Globulin Ratio 0.6 (0.9-2) L 05/09/19 19:38 Procalcitonin 0.79 ng/ml (0-0.5) H 05/09/19 19:38 Urine Color Dark Yellow 05/09/19 19:40 Urine Appearance Clear (Clear) 05/09/19 19:40 Urine pH 6.0 (4.5-7.5) 05/09/19 19:40 Ur Specific [place] 1.019 (1.000-1.030) 05/09/19 19:40 Urine Protein Trace (Negative) H 05/09/19 19:40 Urine Glucose (UA) Negative (Negative) 05/09/19 19:40 Urine Ketones Trace (Negative) H 05/09/19 19:40 Urine Blood 3+ (Negative) H 05/09/19 19:40 Urine Nitrite Positive (Negative) A 05/09/19 19:40 Urine Bilirubin Negative (Negative) 05/09/19 19:40 Urine Urobilinogen Negative (Negative) 05/09/19 19:40 Ur Leukocyte Esterase Trace (Negative) H 05/09/19 19:40 Urine WBC (Auto) 10-30 /hpf (0-5) H 05/09/19 19:40 Urine RBC (Auto) 10-30 /hpf (0-4) H 05/09/19 19:40 U Hyaline Cast (Auto) 10-30 /lpf (0-5) H 05/09/19 19:40 U Epithel Cells (Auto) >30 /lpf (0-5) H 05/09/19 19:40 Urine Bacteria (Auto) Negative (Negative) 05/09/19 19:40 Ur Renal Epithelial Cell 0-5 /lpf (0-5) 05/09/19 19:40 Granular Casts 1-5 /lpf (0) H 05/09/19 19:40 Waxy Casts 1-5 /lpf (0) H 05/09/19 19:40 Urine Yeast Budding (None Prsent) A 05/09/19 19:40 Influenza Type A (PCR) Neg for Influ A (Neg) 05/09/19 19:40 Influenza Type B (PCR) Neg for Influ B (Neg) 05/09/19 19:40 Diagnostic Findings [place], [place] [phone] CT Scan Report Patient: NICOLETTE MCCLENDON Date: 05/09/19 MR#: [id number]: [address] Acct ID:[id number]: [place] Date: 6City Zip: [place] [address] Age: 83Location: ED Sex: F Room/Bed: Att Phy:Diagnosis: AMS, LETHARGIC, COMBATIVE Gianna Phy: Violette West Date: 05/09/19 Fam Phy:Interpreting Phy: Saul Abraham MD Admit Phy: Ordering Phy: Moustapha Barnes M.D. cc: ~ HEAD CT NONCONTRAST CT DOSE: 614.27 mGy.cm HISTORY: confusion TECHNIQUE: Multiaxial CT images of the head were performed without the use of intravenous contrast. Automated exposure control was utilized for this study. A dose lowering technique was utilized adhering to the principles of ALARA. Comparison: Head CT 10/11/2017. Findings: The paranasal sinuses and mastoid air cells are clear. The calvarium and skull base are intact. Mild motion artifact. Focal hypodensity within the left medial parietal/occipital lobe best seen on axial image 16. This measures 3.5 cm and appears to represent vasogenic edema. This hypodense area does demonstrate slight increased density centrally. Mild atrophy and microvascular ischemic changes are noted. No hematoma or midline shift. Impression: A 3.5 cm hypodensity within the left medial parietal/occipital lobe. This appears to represent vasogenic edema and demonstrates slight increased density centrally. Therefore, this could represent a mass or possibly an infarct. Fo llow-up brain MRI is recommended for further evaluation. ACT 112: Negative or not required by law. Electronically signed by: Saul Abraham M.D. 05/09/2019 8:33 PM Dictated: 05/09/192026 Transcribed: 05/09/192026 [place], [place] [phone] XRay Report Patient: NICOLETTE MCCLENDON Date: 05/09/19 MR#: [id number]: [address] Acct ID:[id number]: [place] [facility] Zip[facility] [place] [address] Age: 83Location: ED Sex: F Room/Bed: Att Phy:Diagnosis: AMS, LETHARGIC, COMBATIVE Gianna [facility]: [facility] Fam Phy:Interpreting Phy: Saul Abraham MD Admit Phy: Ordering Phy: Moustpaha Barnes M.D. cc: ~ XR chest 1V portable HISTORY: SEPSIS COMPARISON: Chest 04/30/2019. FINDINGS: No pneumothorax. The heart remains enlarged. Progressive perihilar interstitial and vascular thickening most pronounced within the upper lobes. This likely represents moderate pulmonary edema. Suspect trace bilateral pleural effusions. IMPRESSION: Moderate pulmonary edema which has progressed. Trace bilateral pleural effusions. ACT 112: Negative or not required by law. Electronically signed by: Saul Abraham M.D. 05/09/2019 8:47 PM Dictated: 05/09/192045 Transcribed: 05/09/192045 Code Status & VTE Plan Code Status DNR/DNI VTE Prophylaxis Plan VTE Prophylaxis will be ordered: Yes PG Care Time/CCT Total # of Minutes Spent Total Time Spent with Patient: Total time spent is greater than 50% in coordination of care (as documented) at patient's floor/unit and/or counseling patient: (1) Sepsis Sepsis acute organ dysfunction status: unspecified Sepsis type: sepsis due to unspecified organism Qualified Code(s): A41.9 - Sepsis, unspecified organism (2) Myocardial infarction Involved coronary artery: unspecified coronary artery Myocardial infarction type: unspecified Qualified Code(s): I21.9 - Acute myocardial infarction, unspecified
[2019-05-09] MEDS ORDERED: PIPERACILL/TAZOBAC CONSULT ACTIVE PRN (23:58)
[2019-05-09] MEDS: D5W AND 1/4NSS + 20MEQ KCL 20 MEQ/1,000 ML BAG IV SCH (23:58)
[2019-05-09] MEDS ORDERED: HYDROCORTISONE SOD SUCCINATE 100 MG/2 ML VIAL IV SCH (23:58)
[2019-05-09] MEDS ORDERED: ONDANSETRON INJ 2 MG/ML 2 ML VIAL IV PRN (23:58)
[2019-05-10] MEDS ORDERED: PATIENT'S HEIGHT AND/OR WEIGHT NEEDED SCH (00:15)
[2019-05-10] MEDS ORDERED: PIPERACILLIN/TAZOBACTAM 4.5 GM in DEXTROSE 5% 100 ML IV ONE (00:15)
[2019-05-10] MEDS: HYDROCORTISONE SOD 100 MG in SYRINGE 0 ML IV SCH ×2 (00:34→08:48)
[2019-05-10] MEDS: ALBUMIN 25% 50 ML IV SCH ×2 (00:58→04:31)
[2019-05-10] MEDS ORDERED: Nursing to Pharmacy Communication ONE (02:07)
[2019-05-10] MEDS: PIPERACILLIN/TAZOBACTAM 3.375 GM in DEXTROSE 5% 100 ML IV SCH ×2 (05:20→13:18)
[2019-05-10] MEDS ORDERED: HEPARIN SOD 5,000 UNIT/0.5 ML VIAL SQ SCH (09:00)
[2019-05-10] MEDS: MoRPHine SULFATE 4 MG/ML 1 ML CARP\\VIAL IV PRN ×4 (10:43→20:24)
[2019-05-10] MEDS: D5W AND 1/4NSS + 20MEQ KCL 20 MEQ/1,000 ML BAG IV SCH (10:45)
[2019-05-10] MEDS ORDERED: LORazepam 1 MG/2 ML VIAL IV ONE (11:00)
[2019-05-10] MEDS ORDERED: LORazepam 1 MG/2 ML VIAL IV PRN (16:01)
--- NOTE | 2019-05-10 16:07 | Hospitalist Progress Note ---
Date of Service May 10, 2019 Assessment & Plan (1) Myocardial infarction: troponin elevated at 5 appears to be in pain and distress discussed with son, does not want aggressive treatment or further testing will make her comfortable Morphine 4mg IV q2, Ativan 1mg IV q2 will adjust if needed (2) Sepsis: Sepsis due to urinary tract infection- comfort measures this is her second admission in past two weeks for similar issue poor quality of life at [facility] per son stop fluids, stop Zosyn (3) Acute UTI: See above (4) Hypernatremia: due to dehydration no further labs (5) Bullous pemphigoid: no further stress dose steroids Subjective patient admitted over night due to worsening confusion, agitation from [facility] she was just admitted two weeks ago for similar presentation with UTI and bullous pemphigoid has dementia at baseline troponin was 5 on initial testing, could not tell me if she had chest pain no ST elevation on EKG admitted physician had talked with patient's son Alexis about the acute [place], he indicated that he did not want any further testing or invasive work up called son this morning to let him know that the patient was very restless, very agitated, appeared to be in pain he said that he just wanted her to be comfortable she has not had much quality of life for the past few weeks will give Morphine and Ativan as needed for pain/agitation make comfort measures, no lab draws Review of Systems Review of Systems: Unobtainable due to cognitive status Physical Exam Constitutional: + ill appearing, + frail appearing, + disheveled and + in distress Eyes: PERRL, conjunctivae normal, anicteric sclerae ENMT: external ear and nose normal, oropharynx normal (dry mucous membranes) Neck: trachea midline, no thyromegaly Respiratory: + labored breathing Auscultation: + diminished lung sounds; no wheezes Cardiovascular: Rate/Rhythm: + tachycardic Heart Sounds: normal S1 and normal S2; no murmur Extremities: normal capillary refill; no edema Gastrointestinal (Abdomen): normal bowel sounds, soft, nontender, no hepatosplenomegaly Musculoskeletal: Head/Neck/Chest: normocephalic and head atraumatic Extremities: + abnormal strength (generalized weakness) and + cyanosis; no clubbing Skin: no rashes, warm and dry Neurologic: + confused Psychiatric: Orientation: + not oriented to person, + not oriented to place and + not oriented to time Lymphatic: no cervical or axillary lymphadenopathy Results & Data Vital Signs (Past 12 Hours) Vital Signs Temp Pulse Resp BP Pulse Ox 05/10/19 15:11 36.8 C 110 H 20 94/58 L 90 05/10/19 07:13 36.4 C L 91 H 18 109/66 92 Laboratory Results Laboratory Results - last 24 hr 05/09/19 05/09/19 05/09/19 19:38 19:38 19:38 WBC 14.60 H RBC 4.07 L Hgb 12.2 Hct 36.6 L MCV 89.9 MCH 30.0 MCHC 33.3 RDW Std Deviation 49.7 H RDW Coeff of Roger 15.3 H Plt Count 182 MPV 11.8 H Immature Gran % (Auto) 0.6 Neut % (Auto) 88.6 Lymph % (Auto) 5.1 [place] % (Auto) 5.2 Eos % (Auto) 0.4 Baso % (Auto) 0.1 Immature Gran # (Auto) 0.09 H Neut # (Auto) 12.93 H Lymph # (Auto) 0.75 L [place] # (Auto) 0.76 H Eos # (Auto) 0.06 Baso # (Auto) 0.01 Ovalocytes 1+ Echinocytes 1+ PT 13.2 H INR 1.3 H APTT 22.7 PTT Ratio 0.8 Sodium Potassium Chloride Carbon Dioxide Anion Gap BUN Creatinine Est Cr Clr Drug Dosing Est GFR ( Amer) Est GFR (Non-Af Amer) BUN/Creatinine Ratio Glucose Lactate Calcium Magnesium Total Bilirubin AST ALT Alkaline Phosphatase Troponin I Total Protein Albumin Globulin Albumin/Globulin Ratio Procalcitonin 0.79 H Urine Color Urine Appearance Urine pH Ur Specific [place] Urine Protein Urine Glucose (UA) Urine Ketones Urine Blood Urine Nitrite Urine Bilirubin Urine Urobilinogen Ur Leukocyte Esterase Urine WBC (Auto) Urine RBC (Auto) U Hyaline Cast (Auto) U Epithel Cells (Auto) Urine Bacteria (Auto) Ur Renal Epithelial Cell Granular Casts Waxy Casts Urine Yeast Nasal Screen MRSA (PCR) Influenza Type A (PCR) Influenza Type B (PCR) 05/09/19 05/09/19 05/09/19 19:38 19:38 19:40 WBC RBC Hgb Hct MCV MCH MCHC RDW Std Deviation RDW Coeff of Roger Plt Count MPV Immature Gran % (Auto) Neut % (Auto) Lymph % (Auto) [place] % (Auto) Eos % (Auto) Baso % (Auto) Immature Gran # (Auto) Neut # (Auto) Lymph # (Auto) [place] # (Auto) Eos # (Auto) Baso # (Auto) Ovalocytes Echinocytes PT INR APTT PTT Ratio Sodium 150 H Potassium 2.7 L Chloride 119 H Carbon Dioxide 26 Anion Gap 5.0 BUN 14 Creatinine 0.79 Est Cr Clr Drug Dosing Not Reportable Est GFR ( Amer) 80.2 Est GFR (Non-Af Amer) 69.2 BUN/Creatinine Ratio 17.9 Glucose 107 H Lactate 2.6 H* Calcium 8.1 L Magnesium 2.1 Total Bilirubin 1.6 H AST 66 H ALT 38 Alkaline Phosphatase 131 H Troponin I 5.940 H* Total Protein 5.6 L Albumin 2.0 L Globulin 3.6 Albumin/Globulin Ratio 0.6 L Procalcitonin Urine Color Urine Appearance Urine pH Ur Specific [place] Urine Protein Urine Glucose (UA) Urine Ketones Urine Blood Urine Nitrite Urine Bilirubin Urine Urobilinogen Ur Leukocyte Esterase Urine WBC (Auto) Urine RBC (Auto) U Hyaline Cast (Auto) U Epithel Cells (Auto) Urine Bacteria (Auto) Ur Renal Epithelial Cell Granular Casts Waxy Casts Urine Yeast Nasal Screen MRSA (PCR) Influenza Type A (PCR) Neg for Influ A Influenza Type B (PCR) Neg for Influ B 05/09/19 05/09/19 05/10/19 19:40 21:25 00:42 WBC RBC Hgb Hct MCV MCH MCHC RDW Std Deviation RDW Coeff of Roger Plt Count MPV Immature Gran % (Auto) Neut % (Auto) Lymph % (Auto) [place] % (Auto) Eos % (Auto) Baso % (Auto) Immature Gran # (Auto) Neut # (Auto) Lymph # (Auto) [place] # (Auto) Eos # (Auto) Baso # (Auto) Ovalocytes Echinocytes PT INR APTT PTT Ratio Sodium Potassium Chloride Carbon Dioxide Anion Gap BUN Creatinine Est Cr Clr Drug Dosing Est GFR ( Amer) Est GFR (Non-Af Amer) BUN/Creatinine Ratio Glucose Lactate 2.2 H* Calcium Magnesium Total Bilirubin AST ALT Alkaline Phosphatase Troponin I Total Protein Albumin Globulin Albumin/Globulin Ratio Procalcitonin Urine Color Dark Yellow Urine Appearance Clear Urine pH 6.0 Ur Specific [place] 1.019 Urine Protein Trace H Urine Glucose (UA) Negative Urine Ketones Trace H Urine Blood 3+ H Urine Nitrite Positive A Urine Bilirubin Negative Urine Urobilinogen Negative Ur Leukocyte Esterase Trace H Urine WBC (Auto) 10-30 H Urine RBC (Auto) 10-30 H U Hyaline Cast (Auto) 10-30 H U Epithel Cells (Auto) >30 H Urine Bacteria (Auto) Negative Ur Renal Epithelial Cell 0-5 Granular Casts 1-5 H Waxy Casts 1-5 H Urine Yeast Budding A Nasal Screen MRSA (PCR) Negative Influenza Type A (PCR) Influenza Type B (PCR) Medications Administered Current Inpatient Medications Piperacillin Sod/Tazobactam (Sod 3.375 gm/ Dextrose) 115 mls @ 28.75 mls/hr IV Q8H [place]; Protocol Stop: 05/17/19 05:59 Last Admin: 05/10/19 13:18 Dose: 28.8 mls/hr Documented by: Lorazepam (Ativan) 1 mg in 2 mls @ 2 mls/min IV Q2H PRN PRN Reason: Anxiety/Agitation Stop: 06/09/19 16:00 Morphine Sulfate (Morphine Sulfate) 4 mg IV Q2H PRN PRN Reason: Pain Stop: 05/24/19 10:37 Last Admin: 05/10/19 15:51 Dose: 4 mg Documented by: Ondansetron HCl (Zofran) 4 mg IV Q6H PRN PRN Reason: Nausea Stop: 06/08/19 23:57 PG Care Time/CCT Total # of Minutes Spent Total Time Spent with Patient: Total time spent is greater than 50% in coordination of care (as documented) at patient's floor/unit and/or counseling patient: (1) Sepsis Sepsis acute organ dysfunction status: unspecified Sepsis type: sepsis due to unspecified organism Qualified Code(s): A41.9 - Sepsis, unspecified organism (2) Myocardial infarction Involved coronary artery: unspecified coronary artery Myocardial infarction type: unspecified Qualified Code(s): I21.9 - Acute myocardial infarction, unspecified
--- NOTE | 2019-05-10 22:42 | Electrocardiogram Report ---
Test Reason : Blood Pressure : / mmHG Vent. Rate : 106 BPM Atrial Rate : 106 BPM P-R Int : 216 ms QRS Dur : 090 ms QT Int : 402 ms P-R-T Axes : 000 097 045 degrees QTc Int : 533 ms Poor data quality, interpretation may be adversely affected Sinus tachycardia with 1st degree A-V block with Premature atrial complexes Rightward axis Prolonged QT Abnormal ECG When compared with ECG of 29-APR-2019 09:07, Premature atrial complexes are now Present QRS axis Shifted right QT has lengthened Confirmed by Ab Howard ([id number]) on 05/10/2019 10:42:33 PM Referred By: [facility] Confirmed By:Ab Howard
[2019-05-11] MEDS: MoRPHine SULFATE 4 MG/ML 1 ML CARP\\VIAL IV PRN ×2 (05:04→09:02)
[2019-05-11] MEDS ORDERED: MoRPHine SULF/NSS 1 MG/ML 250 ML BTL IV ONE (10:08)
[2019-05-11] MEDS ORDERED: MoRPHine SULF/NSS 250 MG/250 ML BTL IV SCH (10:30)
[2019-05-11] MEDS ORDERED: SCOPOLAMINE 1.5 MG TDSY TD SCH (10:30)
--- NOTE | 2019-05-11 15:42 | Hospitalist Progress Note ---
Date of Service May 11, 2019 Assessment & Plan (1) Myocardial infarction: troponin elevated at 5 appeared to be in pain and distress, very agitated and confused morning of 05/10 discussed with son on 05/10, does not want aggressive treatment or further testing will make her comfortable Morphine drip started today, much more comfortable Ativan PRN (2) Sepsis: Sepsis due to urinary tract infection- comfort measures this is her second admission in past two weeks for similar issue poor quality of life at [facility] per son stop fluids, stop Zosyn (3) Acute UTI: See above (4) Hypernatremia: due to dehydration no further labs (5) Bullous pemphigoid: no further stress dose steroids Subjective patient more agitated this morning on PRN morphine discussed with family at the bedside, will start on Morphine drip revisited later today, patient resting comfortably, no issues all day after drip started Review of Systems Review of Systems: Unobtainable due to reduced consciousness Physical Exam Constitutional: + ill appearing, + frail appearing and + disheveled Eyes: PERRL, conjunctivae normal, anicteric sclerae ENMT: external ear and nose normal, oropharynx normal (dry mucous membranes) Neck: trachea midline, no thyromegaly Respiratory: Auscultation: + diminished lung sounds; no wheezes Cardiovascular: Rate/Rhythm: + tachycardic Heart Sounds: normal S1 and normal S2; no murmur Extremities: normal capillary refill; no edema Gastrointestinal (Abdomen): normal bowel sounds, soft, nontender, no hepatosplenomegaly Musculoskeletal: Head/Neck/Chest: normocephalic and head atraumatic Extremities: + abnormal strength (generalized weakness) and + cyanosis; no clubbing Skin: no rashes, warm and dry Neurologic: + confused Psychiatric: Orientation: + not oriented to person, + not oriented to place and + not oriented to time Lymphatic: no cervical or axillary lymphadenopathy Results & Data Medications Administered Current Inpatient Medications Lorazepam (Ativan) 1 mg in 2 mls @ 2 mls/min IV Q2H PRN PRN Reason: Anxiety/Agitation Stop: 06/09/19 16:00 Last Admin: 05/11/19 11:38 Dose: 2 mls/min Documented by: Morphine Sulfate (Morphine Sulf/Nss) 250 mg in 250 mls @ 10 mls/hr IV .Q24H [facility]; Protocol Stop: 05/25/19 10:29 Last Titration: 05/11/19 21:08 Dose: 10 mg/hr, 10 mls/hr Documented by: Miscellaneous (Check Scopolamine Patch Placement) 1 ea N/A QS [place] Stop: 06/10/19 15:59 Last Admin: 05/11/19 16:15 Dose: 1 ea Documented by: Miscellaneous (Remove Transderm-Scop Patch) 1 ea N/A Q72H [place] Stop: 06/13/19 09:59 Morphine Sulfate (Morphine Sulfate) 4 mg IV Q2H PRN PRN Reason: Pain Stop: 05/24/19 10:37 Last Admin: 05/11/19 09:02 Dose: 4 mg Documented by: Ondansetron HCl (Zofran) 4 mg IV Q6H PRN PRN Reason: Nausea Stop: 06/08/19 23:57 Scopolamine (Transderm-Scop) 1.5 mg TD Q72H [place] Stop: 06/10/19 10:29 Last Admin: 05/11/19 10:21 Dose: 1.5 mg Documented by: PG Care Time/CCT Total # of Minutes Spent Total Time Spent with Patient: Total time spent is greater than 50% in coordination of care (as documented) at patient's floor/unit and/or counseling patient: (1) Myocardial infarction Involved coronary artery: unspecified coronary artery Myocardial infarction type: unspecified Qualified Code(s): I21.9 - Acute myocardial infarction, unspecified (2) Sepsis Sepsis acute organ dysfunction status: unspecified Sepsis type: sepsis due to unspecified organism Qualified Code(s): A41.9 - Sepsis, unspecified organism
[2019-05-11] MEDS: CHECK SCOPOLAMINE PATCH PLACEMENT SCH (16:15)
[2019-05-12] MEDS: CHECK SCOPOLAMINE PATCH PLACEMENT SCH (00:20)
--- NOTE | 2019-05-17 21:13 | Discharge Summary ---
Date of Service May 12, 2019 Admission HPI Per Admitting Provider The patient is an 83-year-old female with a past medical history including UTI, septic shock, myocardial infarction, hypothyroidism, dementia, bullous pemphigoid and bacteremia. She presents to the emergency department with altered mental status with increased lethargy and combativeness. She did have a fall just prior to [place] 2 weeks ago. The patient is a resident from [facility], and was admitted to the hospital from 04/27-04/30/2019 for sepsis due to urinary tract infection. Her son reports that her symptoms had improved at that admission, however, the symptoms today are similar to that recent episo de. The patient is unable to contribute to her HPI or review of systems due to altered mental state Principal Diagnosis Acute Non ST elevation [place] Discharge Exam Constitutional + ill appearing, + frail appearing and + disheveled Eyes PERRL, conjunctivae normal, anicteric sclerae ENMT external ear and nose normal, oropharynx normal (dry mucous membranes) Neck trachea midline, no thyromegaly Respiratory Auscultation: + diminished lung sounds; no wheezes Cardiovascular Heart Sounds: normal S1 and normal S2; no murmur Extremities: normal capillary refill; no edema Gastrointestinal (Abdomen) normal bowel sounds, soft, nontender, no hepatosplenomegaly Musculoskeletal Head/Neck/Chest: normocephalic and head atraumatic Extremities: + abnormal strength (generalized weakness) and + cyanosis; no clubbing Skin no rashes, warm and dry Neurologic + confused Psychiatric Orientation: + not oriented to person, + not oriented to place and + not oriented to time Lymphatic no cervical or axillary lymphadenopathy Discharge Data Allergies Allergy/AdvReac Type Severity Reaction Status Date / Time adhesive Allergy Unknown . Verified 05/09/19 20:02 Sulfa (Sulfonamide Allergy Unknown . Verified 05/09/19 20:02 Antibiotics) Consultations 05/09/19 20:38 ED Decision to Admit Stat 05/09/19 23:58 Consult Case Management - Discharge Planning Routine Ordered Studies 05/09/19 19:06 CT head/brain wo con Stat Hospital Course (1) Myocardial infarction: troponin elevated at 5, this was initial check, no further testing done per wishes of her son, ARIS appeared to be in pain and distress, very agitated and confused morning of 05/10 discussed with son on 05/10, did not want aggressive treatment or further testing changed to comfort care Morphine drip for comfort Ativan PRN peacefully on 05/12/19 (2) Sepsis: Sepsis due to urinary tract infection- comfort measures this is her second admission in past two weeks for similar issue poor quality of life at [facility] per son stopped fluids, stopped Zosyn (3) Acute UTI: See above (4) Hypernatremia: due to dehydration no further labs (5) Bullous pemphigoid: no further stress dose steroids Total Time Total Time Spent Total Time Spent (In Minutes): 10 minutes Discharge Plan Discharge Items Patient Disposition: Reason For Visit: SEPSIS,PNEUMONIA,UTI Follow-up/Referrals: [facility] [Primary Care Provider] - Admission Data Admit Date/Time: 05/09/19 22:56 Other DC Date/Time DO NOT enter until pt leaves facility: 05/12/19 04:50
== END 2019-05-12 04:50 | disposition expired | DRG 871 ==
LOC: ED 18:44 → SUATTDRO 22:56 → 4W 22:56